=== PATIENT | male | born 1935 | race Caucasian/White ===

== ENCOUNTER 2017-05-11 15:58 | Inpatient (IN) | payer MEDICARE, OTHER ==
[~2017-05-11] VITALS: Ht 172.7 cm; Wt 63.1 kg
--- NOTE | ~2017-05-11 | PUL ---
PATIENT'S NAME: NICOLE WIN [facility] AGE: 82 Y [address] ROOM: [address] [address] LOCATION: GPCU ADMIT DATE: 05/11/2017 Pulmonary DISCHARGE DATE: 05/25/2017 FAMILY PHYSICIAN: Physician, Unknown ATTENDING PHYSICIAN: Daphnie Arias NAME OF PROCEDURE: Overnight Pulse Oximetry DATE OF PROCEDURE: May 17 to May 18, 2017 REASON FOR EXAM: Nocturnal hypoxemia RESULTS: The test was performed on room air. The recording time was 9 hours, 35 minutes, and 56 seconds, with a total valid sampling time of 9 hours, 24 minutes, and 4 seconds. The highest pulse was 109, lowest pulse was 81, with a mean pulse of 91. The highest SpO2 was 98%, lowest SpO2 was 56%, with a mean SpO2 of 90.5%. The patient spent 1 hour, 24 minutes, and 28 seconds with SpO2 less than 89%, representing 15% of the total sleep time. The desaturation event index was elevated at 16.9. PHYSICIAN INTERPRETATION: The patient has evidence was of significant nocturnal hypoxia and would qualify for supplemental oxygen as per Medicare criteria. However because of his significant on nocturnal hypoxia with an elevated desaturation event index a sleep study is suggested at this time. MD TONY OH/bubba /[id number] dtt: 05/28/17 0922 , LAURA HERNANDEZ dtd: 05/27/17 2151
--- NOTE | ~2017-05-11 | DS ---
PATIENT'S NAME: NICOLE WIN [facility] AGE: 82 Y [address] ROOM: [place] [address] LOCATION: GPCU ADMIT DATE: 05/11/2017 Discharge Summary DISCHARGE DATE: 05/25/2017 FAMILY PHYSICIAN: Physician, Unknown ATTENDING PHYSICIAN: Daphnie Arias PRIMARY DIAGNOSES: 1. 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 2. End-stage renal disease, on hemodialysis. 3. Acute encephalopathy. 4. Diabetes mellitus type 2. 5. Essential hypertension. 6. Severe peripheral arterial disease. 7. Cerebrovascular disease. 8. Overactive bladder. 9. Eiepmp-rc-cvollia kidney disease. OPERATIONS/PROCEDURES: Left 3rd and 4th toe amputation was carried out 05/14/[address] Sauer. HISTORY OF PRESENTING ILLNESS/REASON FOR ADMISSION: Please refer to the H and P dictated 05/11/2017. HOSPITAL COURSE: The patient was admitted to the hospital as noted above with a presumptive diagnosis of left 3rd and 4th toe gangrene. He was seen and evaluated in an outside facility and recommended for hospitalization. Because hemodialysis was not available there, he was transferred here for definitive evaluation and management. He was mildly encephalopathic demonstrating lethargy upon his admission. He was seen and evaluated by Vascular Surgery. Nephrology also assisted in management and performed hemodialysis over the course of his hospital stay here. Ultimately, he was recommended to undergo a left 3rd and 4th toe amputation and this was performed by Dr. Sauer without any complications. His hospital course was indolent. His blood sugars were managed with sliding scale insulin and proved to be labile. His insulin regimen was adjusted. Blood pressure is also proved to be labile. He was continued on ARB therapy with losartan, but did require some intermittent treatment for uncontrolled blood pressures. He also received a variety of supportive cares and some restorative care including physical therapy, occupational therapy. Care management assisted in looking for placement for him. It was felt that he would not be safe to return home and did not have an appropriate support PATIENT'S NAME: NICOLE WIN [facility] AGE: 82 Y [address] ROOM: [place] [address] LOCATION: GPCU ADMIT DATE: 05/11/2017 Discharge Summary DISCHARGE DATE: 05/25/2017 FAMILY PHYSICIAN: Physician, Unknown ATTENDING PHYSICIAN: Daphnie Arias system in place. We did look for group home care, but this was complicated by the patient's spectrum of medical problems including hemodialysis. Ultimately, arrangements were made for him to be transferred to [facility] in [place]. By the end of the day on 05/25/2017, it was felt he would be stable enough for discharge to [facility] with plans for close clinical follow up with his primary care provider as well as outpatient followup with the Dialysis Unit. He will resume his usual Sunday, Sunday, and schedule. DISCHARGE INSTRUCTIONS: 1. Diet: Renal prudent as tolerated. 2. Activities: As tolerated. MEDICATIONS: 1. Amlodipine 5 mg p.o. daily. 2. Levemir insulin 8 units subcutaneous q.a.m. and 10 units subcu q.p.m. 3. Insulin NovoLog per sliding scale. 4. Colace 100 mg p.o. b.i.d. 5. Protonix 40 mg p.o. q.h.s. 6. Losartan 25 mg p.o. daily. 7. Plavix 75 mg p.o. daily. 8. Aspirin 81 mg p.o. q.h.s. 9. Vitamin B complex with C and E daily. 10. Acetaminophen 650 mg p.o. or CO q.6 h. p.r.n. pain or fever. 11. Glucose tab 16 g p.o. daily p.r.n. hypoglycemia. 12. Glucagon 1 mg subcu daily p.r.n. hypoglycemia. FOLLOW UP: He will follow up with his primary care provider in 5 to 7 days. He will follow up at the Dialysis Unit tomorrow Sunday to resume his usual dialysis schedule. He will follow up with Dr. Sauer in 2 weeks. CONDITION ON DISCHARGE: Fair. Total time spent on discharge process was 60 minutes. MD RASHARD LEWIS/modl /[id number] d: 05/26/17 0546 t: 05/26/1733, DISCHARGE SUMMARY
--- NOTE | ~2017-05-11 | HP ---
PATIENT'S NAME: NICOLE WIN [facility] AGE: 82 Y [address] ROOM: [address] [place] [address] LOCATION: GPCU ADMIT DATE: 05/11/2017 History & Physical DISCHARGE DATE: FAMILY PHYSICIAN: PHYSICIAN, UNKNOWN ATTENDING PHYSICIAN: JUDY AGUIAR DATE OF SERVICE: 05/11/2017 CHIEF COMPLAINT: Gangrene in a diabetic patient with severe peripheral vascular disease. HISTORY OF PRESENT ILLNESS: Mr. Win was transported to our facility from the care of Dr. White, artificial cherry maker at [facility] in [place], [place] this afternoon. The history is gleaned from my interview with his son Nicole Win Jr. Mr. Win has been cared for by his son Santiago nearly continually and he has been progressively weakening over the past week especially. On 05/03/2017, he was admitted to [facility] for infection in the left foot. He was given IV antibiotics, but they did not have dialysis capacity at that facility, and he was discharged on Augmentin 875 mg p.o. b.i.d. and discharged last Sunday. He went to Sunday dialysis there. He was seen earlier this week and noted to have the worsening of infection with erythema and heat on the foot by Dr. Le, he was sent to Dr. White, who completed intervention angiography of the lower extremity to revascularize the left foot today. He tolerated the procedure well. He was given a dose of Zosyn and vancomycin there and blood cultures were obtained. He was started on aspirin and Plavix The patient is fairly sleepy when he arrives here, does not participate in questioning much at all except to agree to the DNR order and to give me some basic yes and no answers. PAST MEDICAL HISTORY: 1. Diabetes mellitus for the past 25 years. 2. Peripheral vascular disease, very severe. 3. End-stage renal disease, dialysis dependent for the past 2 years, he is a patient of Dr. Corona. 4. Cerebrovascular disease, status post cerebral infarction. 5. Snoring, but no diagnosis of obstructive sleep apnea. PAST SURGICAL HISTORY: 1. Fistula in his right arm. 2. Resection of renal stones. 3. Left knee procedure for small tumor in the very distant past. PATIENT'S NAME: NICOLE WIN [facility] AGE: 82 Y [address] ROOM: [address] [address] [facility] ADMIT DATE: 05/11/2017 History & Physical DISCHARGE DATE: FAMILY PHYSICIAN: PHYSICIAN, UNKNOWN ATTENDING PHYSICIAN: JUDY AGUIAR 4. Angiogram and revascularization with 2 stents to the left external iliac and other vessels in the left leg. ALLERGIES: NO KNOWN DRUG ALLERGIES. MEDICATIONS: 1. Amlodipine 5 mg p.o. daily, amlodipine was discontinued today. 2. Amoxicillin 500 b.i.d. 3. B complex vitamin daily. 4. Plavix 75 a day. 5. Colestid 1 g b.i.d. 6. Insulin Humulin 70/30 subcu 25 units q.a.m. and 25 units every bedtime. 7. Losartan 25 mg p.o. daily. 8. Myrbetriq 50 mg daily. 9. He was discharged on aspirin 81 mg p.o. daily per the drilling assistant. SOCIAL HISTORY: He has been for the past 2 years. He has 3 children. Mainly his son Santiago is local and cares for him. He is with him most of the time and 24 hours a day for the past week. 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 He smoked for most of his life and continues to smoke a pack a day and he has a rare alcoholic beverage. No other illicit drug use is reported. FAMILY HISTORY: His mother at age 64 of breast cancer. His father at 84 of a brain tumor. He also had diabetes. The patient needs to use a walker since December, but he has been using a wheelchair intermittently for the past 2 weeks, but constantly this past week. REVIEW OF SYSTEMS: Again, most of this history is taken from the son's history and the patient does not offer much; although, I am sitting right next to him and asking these questions, he slept most of the time. GENERAL: He has had 40 pounds weight loss over the past 3 years. His appetite is diminished at times. He has had increasing fatigue. HEENT: He has cataract, glaucoma, and wears glasses. He has had dizziness. He does have thin liquid and pill dysphagia. PULMONARY: He has had shortness of breath, but no orthopnea, current cough, wheezing, he has not had a heart attack in the past, he does get ankle edema sometimes. GASTROINTESTINAL: Positive for stomach distention with nausea, reflux, no vomiting, incontinence of loose and watery stool, especially recently, no constipation. Last BM was today. No significant cramping with his bloating. No hematemesis, hematochezia, or melena. PATIENT'S NAME: NICOLE WIN [facility] AGE: 82 Y [address] ROOM: [id number] [place] [address] LOCATION: GPCU ADMIT DATE: 05/11/2017 History & Physical DISCHARGE DATE: FAMILY PHYSICIAN: PHYSICIAN, UNKNOWN ATTENDING PHYSICIAN: JUDY AGUIAR GENITOURINARY: He was being treated for hyperactive bladder, but he has had consistently less and less output since he has been on dialysis. NEUROLOGIC: He has bilateral weakness. He has diabetic neuropathy. His confusion started 3 months ago and got worse this week. He has had no dysarthria, syncope, or recent falls. He has balance problems related to diabetes and short-term memory is progressively worse. He has chronic kidney disease with chronic anemia. MUSCULOSKELETAL: He has left knee pain. No known osteoporosis. ENDOCRINE: He has diabetes with sweats, which have improved since it has been better controlled since his son has been helping him control his diet and has hired someone to give him his medicines at noontime. SKIN: He is red over the dorsum of the left foot with a mild cellulitis there. He has some verrucous lesions on the lower extremities as well. PSYCHIATRIC: Negative for depression, schizophrenia, manic, depressive, or insomnia. PHYSICAL EXAMINATION: GENERAL: This is a well-developed, relatively well-nourished male who is pale, he is bearded, he is unkempt listless gentleman. HEENT: Normocephalic, atraumatic. His pupils are equal, round. Sclerae are anicteric, slightly injected, left worse than right. Palpebral conjunctiva are pale and pink without exudate. Oropharynx reveals dentition in not too bad repair, but really the hygiene is poor. Mucous membranes are relatively moist. Soft palate, lifts symmetrically. NECK: Supple without lymphadenopathy. LUNGS: Reveal crackles in both bases. There is no CVA or vertebral tenderness. CARDIOVASCULAR: Regular rate and rhythm without murmur, rub, or gallop. ABDOMEN: Mildly obese. Soft. Slightly distended and full. No specific mass with normoactive bowel sounds. EXTREMITIES: There is no pretibial edema. The left foot is slightly edematous with mild erythema on the dorsum, but both feet are extremely poorly cared for and he has some dark material matted around the toes of both feet. There is gangrene of the 3rd and 4th toes in the left foot and no pulses are palpable on the right or left foot by me so dopplerable pulses on the left. Strength is not tested in the lower extremities. He is able to grasp about 4/5 in both hands slightly better on the right than the left. LABORATORY DATA: This is from today from [facility], white blood cell count is 15.8, hemoglobin 12.2, hematocrit 37.7, platelets 370,000, neutrophils absolute 10.5, percent neutrophils is 67, percent lymphs 24, monos 7, eos 3. INR is 1. Sodium 136, potassium 4.1, chloride 89, CO2 29, glucose 220, BUN 23, creatinine 3.0, calcium 9.0, and eGFR 19. PATIENT'S NAME: NICOLE WIN [facility] AGE: 82 Y [address] ROOM: [place] [address] LOCATION: GPCU ADMIT DATE: 05/11/2017 History & Physical DISCHARGE DATE: FAMILY PHYSICIAN: PHYSICIAN, UNKNOWN ATTENDING PHYSICIAN: JUDY AGUIAR ASSESSMENT AND PLAN: 1. Gangrene of the left foot. We are going to continue to treat this with Zosyn, hold further Vanco until after dialysis tomorrow, and start clindamycin, assess him for sepsis criteria. I have initiated the sepsis protocol. He did have a short-dip into 81% saturation when he 1st got here on room air and he is well-saturated above 95 on 2 L by nasal cannula. 2. Severe peripheral vascular disease. He has been seen by Dr. Sauer who believes he will need an [id number] amputation on the right and possibly rbopa-elk-fctq amputation on the left, we will be reassessing that in a couple of days. 3. Diabetes mellitus. We will start him on diabetic diet. Continue his home insulin dosing and sliding scale with NovoLog. We will reassess that in next 24 hours. 4. Hypertension. This is from peripheral vascular disease, the amlodipine has been stopped, and we will monitor his blood pressure and continue his losartan. 5. Chronic kidney disease with end-stage renal disease with dialysis dependence. I have spoken to Dr. Garcia and he will go to dialysis in the morning. 6. Disposition. Hope to be able to care for his wounds, decide on his amputations, and then he likely will need rehab following that. JUDY AGUIAR MD LM/chris /[id number] D: [id number] T: 719 HISTORY & PHYSICAL
--- NOTE | ~2017-05-11 | OR ---
PATIENT'S NAME: NICOLE WIN [facility] AGE: 82 Y [address] ROOM: [place] [address] [facility] AD[facility] DATE: 05/11/2017 OR/Procedure Report DISCHARGE DATE: FAMILY PHYSICIAN: PHYSICIAN, UNKNOWN ATTENDING PHYSICIAN: JUDY AGUIAR SURGEON: Stephen Sauer MD RIVET FLUNKY: DATE OF PROCEDURE: 05/14/2017 PREOPERATIVE DIAGNOSIS: Gangrenous left third and fourth toes. POSTOPERATIVE DIAGNOSIS: Gangrenous left third and fourth toes. PROCEDURE PERFORMED: Left third and fourth toe amputation. WELFARE ADVISER: JAKE Kaplan. ANESTHESIA: General. ESTIMATED BLOOD LOSS: 5 mL. OPERATIVE FINDINGS: Minimal bleeding after resection of toes. No evidence of infection in the foot. DESCRIPTION OF PROCEDURE: The patient was brought to the operating room, placed supine on the operating table, placed under general anesthesia. Prepped and draped in a sterile manner. Preoperative time-out was performed. We made a circular incision at the base of the third and fourth toes, transected the bones with a bone cutter. We then used a rongeur to nibble back the heads of the metatarsals until we had healthy surrounding bone. There was some only mild bleeding, there was no brisk bleeding. The foot is at high risk of not being able to heal. We copiously irrigated the wound. We then reapproximated the deep layers with Vicryl, skin was closed with interrupted nylon. The patient tolerated the procedure well, was transferred to the recovery room, and back to the floor. STEPHEN SAUER MD FKM/modl /[id number] d: 05/14/17 1058 t: 05/16/17 1318, OPERATIVE SUMMARY
--- NOTE | ~2017-05-11 | CON ---
PATIENT'S NAME: NICOLE WIN [facility] AGE: 82 Y [address] ROOM: [place] [address] LOCATION: GPCU ADMIT DATE: 05/11/2017 Consultation DISCHARGE DATE: FAMILY PHYSICIAN: PHYSICIAN, UNKNOWN ATTENDING PHYSICIAN: JUDY AGUIAR REFERRING PHYSICIAN: VINNY HUTCHINSON MD This is a consult for Dr. Sanchez. HISTORY OF PRESENT ILLNESS: This pleasant 82-year-old gentleman is referred for rehab evaluation, admitted on 05/11/2017 with progressive weakness with infection of the left foot toes. He is status post 3rd and 4th toe amputation on 05/14/2017, details on record. PAST MEDICAL HISTORY: 1. He is known to be with diabetes, not so well controlled, insulin- dependent. 2. Hypertension. 3. End-stage renal disease. 4. Status post CVA. 5. Possible sleep apnea. PAST SURGICAL HISTORY: 1. He is status post fistula in the right arm for dialysis. 2. Status post renal stone removal. 3. Status post stenting to vessels, left external iliac artery and another artery on the left side, leg. SOCIAL HISTORY: He is also a heavy smoker on a regular basis. PHYSICAL EXAMINATION: GENERAL: He is alert, oriented, feels well. VITAL SIGNS: Blood pressure 179/77, temperature 98.0, pulse 87, respirations 18. He is 5 feet 8 inches tall and weighs 62.0 kg. MUSCULOSKELETAL: He can move all 4, but he is markedly weak in the right dorsiflexors and right lower extremity especially, at high risk of falling. He has muscle strength otherwise in the left lower extremity, bilateral upper extremities at about 4-/5, on the right lower extremity dorsiflexor at best is 2- to 1 over 5. MEDICATIONS: He is at the present time on the following medications: 1. Levemir insulin. 2. Insulin NovoLog, mild scale. 3. Dextrose. PATIENT'S NAME: NICOLE WIN [facility] AGE: 82 Y [address] ROOM: [place] [address] LOCATION: GPCU ADMIT DATE: 05/11/2017 Consultation DISCHARGE DATE: FAMILY PHYSICIAN: PHYSICIAN, UNKNOWN ATTENDING PHYSICIAN: JUDY AGUIAR 4. Heparin sodium. 5. Zofran. 6. Colace. 7. Metamora. 8. Morphine sulfate. 9. Protonix. 10. Florastor. 11. Dilaudid. 12. Epogen. 13. Venofer. 14. Albumin 25%. 15. Cozaar. 16. Plavix. 17. Haldol. 18. Colestid. 19. Aspirin. 20. B complex. 21. Tylenol. 22. Glucagon. 23. Glucose. 24. NaCl 0.9%. 25. Insulin 70/30. 26. Vancomycin. 27. Zosyn. ASSESSMENT AND PLAN: We will continue to watch him for PT and OT. I will prescribe for him an ankle-foot orthosis for the right leg to prevent him from falling. He is practically at high risk of falling because of dorsiflexors marked weakness. At the present time, I feel that he needs to be probably addressed regarding cessation of smoking. I will take him if I have an opening. At the present time, we have a full unit. I will try to if we have an opening to take him to rehab. However, if he is discharged before I take him, I would like to see him in 2 weeks in my office. Please see the orders. I would like him not to drive until he is evaluated. All the above was explained to him and his son, they verbalized understanding and in agreement. JUAN JOSÉ DURON MD PATIENT'S NAME: NICOLE WIN [facility] AGE: 82 Y [address] ROOM: [place] [address] LOCATION: GPCU ADMIT DATE: 05/11/2017 Consultation DISCHARGE DATE: FAMILY PHYSICIAN: PHYSICIAN, UNKNOWN ATTENDING PHYSICIAN: JUDY AGUIAR /[id number] d: 05/17/172024 t: 05/18/17 0759, CONSULTATION REPORT
--- NOTE | ~2017-05-11 | CON ---
PATIENT'S NAME: NICOLE WIN [facility] AGE: 82 Y [address] ROOM: [address] [place], [place] [address] LOCATION: GPCU ADMIT DATE: 05/11/2017 Consultation DISCHARGE DATE: FAMILY PHYSICIAN: PHYSICIAN, UNKNOWN ATTENDING PHYSICIAN: JUDY AGUAIR DATE OF CONSULTATION: 05/12/2017 REFERRING PHYSICIAN: VINNY SAUER MD This is a [facility] Nephrology Consultation. REASON FOR CONSULTATION: End-stage renal disease, need for hemodialysis. HISTORY OF PRESENT ILLNESS: This is an 82-year-old male patient with a history of end-stage renal disease, who is a regular hemodialysis patient of Dr. Corona that presented with a left foot infection and is now being followed by Dr. Sauer. At this time of exam, Dr. Sauer has recommended the patient undergo a left BKA and right AKA due to gangrenous diabetic foot ulcer of the left foot as well as severe peripheral vascular disease. Due to the patient's history of end-stage renal disease, on regular hemodialysis on Sunday, , and Sunday, Nephrology has been asked to consult on the patient and manage his hemodialysis while he is hospitalized. At the time of exam, there is no current hemodialysis record available or family at this time. The patient is currently very confused and has been with a one-to-one sitter overnight for restlessness and agitation. PAST MEDICAL HISTORY: As listed above includin. End-stage renal disease, on hemodialysis on Sunday, , and Sunday. 2. Insulin-dependent diabetes. 3. Peripheral vascular disease. 4. Hypertension. 5. High-risk medications in the form of Plavix. PAST SURGICAL HISTORY: As listed above includin. Aortogram with peripheral runoff. 2. AV fistula placement in the right upper extremity. 3. Resection of renal stones. 4. Left knee with small tumor removal. 5. Angiogram with revascularization with two stents to the left external iliac as well as other vessels in the left leg. ALLERGIES: NONE TO MEDICATION.PATIENT'S NAME: NICOLE WIN [facility] AGE: 82 Y [address] ROOM: [address] [place], [place] [address] LOCATION: GPCU ADMIT DATE: 05/11/2017 Consultation DISCHARGE DATE: FAMILY PHYSICIAN: PHYSICIAN, UNKNOWN ATTENDING PHYSICIAN: JUDY AGUIAR CURRENT HOME MEDICATIONS: Include. 1. Amlodipine 5 mg daily. 2. Amoxicillin 500 mg twice a day. 3. Vitamin B complex daily. 4. Plavix 75 mg daily. 5. Colestid 1 g b.i.d. 6. Insulin Humulin 70/30 subcu 25 units every morning and 25 units every bedtime. 7. Losartan 25 mg daily. 8. Myrbetriq 50 mg daily. 9. Aspirin 81 mg daily. SOCIAL HISTORY: The patient does live at home with his son. He has been for the past two years. His son does take care of him on a daily basis. 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 He does have a past history of smoking and does continue to smoke a pack a day. Denies any illicit drug use or alcohol use per record. FAMILY HISTORY: Reviewed and is noncontributory. There is no history of renal disease or dialysis. REVIEW OF SYSTEM: Essentially unable to obtain the patient's full review of systems due to his cognitive status. Further record is significant for a 40-pound weight loss over the past three years. PHYSICAL EXAMINATION: VITAL SIGNS: Blood pressure is 125/78, heart rate is 90, respirations 20, temp 97.6, sats are 96% on 2 L. GENERAL: On exam, this is a confused elderly male, who appears older than his stated age. He is in a moderate amount of distress due to restlessness and agitation. HEENT: His head is normocephalic and atraumatic. Eyes, pupils are equal, round, and reactive to light and accommodation. EOMs intact. Nose midline. Mouth, no gingival bleeding. Dentition is in poor repair. NECK: Soft and supple. LUNGS: Diminished in the bases bilaterally. The patient is on 2 L nasal cannula. CARDIOVASCULAR: Regular rate and rhythm with no appreciable murmurs, rubs, or thrills. ABDOMEN: Soft, nontender, and nondistended. Bowel sounds positive. EXTREMITIES: Show no signs of peripheral edema. There is a dressing noted to the left foot that is clean dry and intact. LABORATORY DATA: WBC is 15.8, hemoglobin 12.2, hematocrit 37.7 and platelets are 370,000. Sodium 136, potassium 4.1, chloride 89, CO2 is 29, glucose 220, BUN 23, creatinine 3.0, calcium 9.0 and GFR is 19.PATIENT'S NAME: NICOLE WIN [facility] AGE: 82 Y [address] ROOM: [address] [place], [place] [address] LOCATION: GPCU ADMIT DATE: 05/11/2017 Consultation DISCHARGE DATE: FAMILY PHYSICIAN: PHYSICIAN, UNKNOWN ATTENDING PHYSICIAN: JUDY AGUIAR ASSESSMENT AND PLAN: 1. End-stage renal disease, on hemodialysis therapy. We will attempt to obtain the patient's outpatient clinical record from [facility]. He does undergo hemodialysis Sunday, , and Sunday. We will initiate hemodialysis as per his primary routine. Further recommendations will be forthcoming. 2. Gangrene of the left foot. The patient is on clindamycin, Zosyn and vanc. We will continue these medications following per Dr. Sauer and primary team's recommendations. 3. Diabetes mellitus. Sliding scale insulin. 4. Hypertension. Blood pressures are controlled at this time. Continue to monitor. This patient has been seen and assessed by Dr. Stewart. His care is being conducted in consultation with Dr. Stewart as well as me. We will plan further recommendations as they are forthcoming. WENDY TERRY DNP, TECHNICAL SERVICES ANALYST FOR ANGELIKA STEWART MD ENS/modl /[id number] d: 05/13/17 1340 t: 06/06/17 1346, CONSULTATION REPORT
[2017-05-11] MEDS ORDERED: NORVASC5 MG PO (17:00)
[2017-05-11] MEDS ORDERED: CLOPIDOGREL75 MG PO (17:04)
[2017-05-11] MEDS ORDERED: COZAAR25 MG PO (17:05)
[2017-05-11] MEDS ORDERED: MYRBETRIQ50 MG PO (17:06)
[2017-05-11] MEDS ORDERED: COLESTID1 GM PO (17:07)
[2017-05-11] MEDS ORDERED: TRIPHROCAPS SOFT1 MG PO (17:30)
[2017-05-11] MEDS ORDERED: AMOX TR-K CLV1 EAC3 PO (17:32)
[2017-05-11] MEDS ORDERED: HUMULIN 70100 UNIT/M SUB-Q (17:40)
[2017-05-11] MEDS ORDERED: HUMULIN 70100 UNIT/M (17:40)
[2017-05-11] MEDS ORDERED: LEVEMIR FL100 UNIT/1 SUB-Q (17:41)
[2017-05-11 18:50] LABS: BICARBONATE 30.4 mmol/L (18.0-23.0); LACTATE 1.1 mEq/L (0.50-1.60); PCO2 48 mmHg (35-45); PO2 60 mmHg (80-90)
[2017-05-11 19:18] LABS: BASOPHIL # 0.1 K/uL (0.0-0.2); BASOPHIL % 0.4 %; EOSINOPHIL # 0.4 K/uL (0.0-0.5); EOSINOPHIL % 3.1 %; HEMATOCRIT 32.4 % (33.0-50.0); HEMOGLOBIN 10.4 g/dL (11.0-16.0); IMMATURE GRANULOCYTE # 0.1 K/uL (0.0-0.3); IMMATURE GRANULOCYTE % 0.6 %; LYMPHOCYTE # 1.3 K/uL (0.8-4.0); LYMPHOCYTE % 10.8 %; MCH 31.4 pg (27.0-34.0); MCHC 32.1 gm/dL (32.0-36.5); MCV 97.9 fl (83.0-98.0); MONOCYTE # 0.6 K/uL (0.0-1.0); MONOCYTE % 5.2 %; NEUTROPHIL # (ANC) 9.8 K/uL (1.4-9.0); NEUTROPHIL % 79.9 %; NRBC % 0 /100WBC (0-0.00); PLATELET COUNT 332 K/uL (150-450); RBC 3.31 M/uL (3.50-5.50); RDW-CV 16.7 % (11.9-14.6); WBC 12.2 K/uL (4.0-11.0)
[2017-05-11 19:36] LABS: ALBUMIN 2.6 gm/dL (3.5-5.0); ANION GAP 16.8 (10.0-19.0); CREATININE 3.5 mg/dL (0.6-1.3); POTASSIUM 4.8 mMol/L (3.7-5.1); TOTAL BILIRUBIN 0.3 mg/dL (0.0-1.5); TOTAL PROTEIN 6.6 g/dL (6.0-8.4)
[2017-05-11 19:39] LABS: CALCIUM 7.4 mg/dL (8.5-10.5)
[2017-05-12 03:46] LABS: BASOPHIL # 0.1 K/uL (0.0-0.2); BASOPHIL % 0.4 %; EOSINOPHIL # 0.4 K/uL (0.0-0.5); EOSINOPHIL % 2.8 %; HEMATOCRIT 26.8 % (33.0-50.0); HEMOGLOBIN 8.7 g/dL (11.0-16.0); IMMATURE GRANULOCYTE # 0.1 K/uL (0.0-0.3); IMMATURE GRANULOCYTE % 0.9 %; LYMPHOCYTE # 1.9 K/uL (0.8-4.0); LYMPHOCYTE % 15.2 %; MCH 31.9 pg (27.0-34.0); MCHC 32.5 gm/dL (32.0-36.5); MCV 98.2 fl (83.0-98.0); MONOCYTE # 1.1 K/uL (0.0-1.0); MONOCYTE % 9.3 %; MPV 8.8 fl (9.4-12.4); NEUTROPHIL # (ANC) 8.8 K/uL (1.4-9.0); NEUTROPHIL % 71.4 %; NRBC % 0 /100WBC (0-0.00); PLATELET COUNT 280 K/uL (150-450); RBC 2.73 M/uL (3.50-5.50); RDW-CV 16.6 % (11.9-14.6); WBC 12.3 K/uL (4.0-11.0)
[2017-05-12 04:03] LABS: ALBUMIN 2.1 gm/dL (3.5-5.0); PHOSPHORUS 6.9 mg/dL (2.5-4.9)
[2017-05-12 04:17] LABS: CALCIUM 7.3 mg/dL (8.5-10.5)
[2017-05-13 03:27] LABS: BASOPHIL % 0.1 %; EOSINOPHIL # 0.2 K/uL (0.0-0.5); HEMATOCRIT 26.1 % (33.0-50.0); HEMOGLOBIN 8.6 g/dL (11.0-16.0); IMMATURE GRANULOCYTE # 0.1 K/uL (0.0-0.3); IMMATURE GRANULOCYTE % 0.6 %; LYMPHOCYTE % 8.6 %; MCH 32.1 pg (27.0-34.0); MCV 97.4 fl (83.0-98.0); MONOCYTE % 4.4 %; MPV 8.9 fl (9.4-12.4); NEUTROPHIL # (ANC) 20.2 K/uL (1.4-9.0); NEUTROPHIL % 85.3 %; NRBC % 0.1 /100WBC (0-0.00); PLATELET COUNT 300 K/uL (150-450); RBC 2.68 M/uL (3.50-5.50); RDW-CV 16.5 % (11.9-14.6)
[2017-05-13 03:28] LABS: WBC 23.7 K/uL (4.0-11.0)
[2017-05-13 03:42] LABS: ALBUMIN 2.1 gm/dL (3.5-5.0); ANION GAP 17.3 (10.0-19.0); CREATININE 2.8 mg/dL (0.6-1.3); PHOSPHORUS 7.1 mg/dL (2.5-4.9); POTASSIUM 4.3 mMol/L (3.7-5.1)
[2017-05-13 03:44] LABS: CALCIUM 7.2 mg/dL (8.5-10.5)
[2017-05-14 06:12] LABS: ALBUMIN 1.8 gm/dL (3.5-5.0); ANION GAP 16.4 (10.0-19.0); CALCIUM 7.2 mg/dL (8.5-10.5); CREATININE 4.2 mg/dL (0.6-1.3); PHOSPHORUS 8.1 mg/dL (2.5-4.9); POTASSIUM 4.4 mMol/L (3.7-5.1)
[2017-05-15 01:27] LABS: CREATININE 2.3 mg/dL (0.6-1.3)
[2017-05-15 01:33] LABS: ANION GAP 11.1 (10.0-19.0); POTASSIUM 3.1 mMol/L (3.7-5.1)
[2017-05-16 05:07] LABS: BASOPHIL % 0.3 %; EOSINOPHIL # 0.5 K/uL (0.0-0.5); EOSINOPHIL % 3.8 %; HEMATOCRIT 25.3 % (33.0-50.0); HEMOGLOBIN 8.3 g/dL (11.0-16.0); IMMATURE GRANULOCYTE # 0.2 K/uL (0.0-0.3); IMMATURE GRANULOCYTE % 1.7 %; LYMPHOCYTE # 2.4 K/uL (0.8-4.0); LYMPHOCYTE % 19.2 %; MCH 31.6 pg (27.0-34.0); MCHC 32.8 gm/dL (32.0-36.5); MCV 96.2 fl (83.0-98.0); MONOCYTE # 0.7 K/uL (0.0-1.0); MONOCYTE % 5.6 %; NEUTROPHIL # (ANC) 8.5 K/uL (1.4-9.0); NEUTROPHIL % 69.4 %; NRBC % 0 /100WBC (0-0.00); PLATELET COUNT 252 K/uL (150-450); RBC 2.63 M/uL (3.50-5.50); RDW-CV 16.8 % (11.9-14.6); WBC 12.3 K/uL (4.0-11.0)
[2017-05-16 08:43] LABS: ALBUMIN 2.3 gm/dL (3.5-5.0); TOTAL PROTEIN 6.4 g/dL (6.0-8.4)
[2017-05-16 08:48] LABS: ANION GAP 17.1 (10.0-19.0); CALCIUM 7.2 mg/dL (8.5-10.5); CREATININE 4.2 mg/dL (0.6-1.3); POTASSIUM 4.1 mMol/L (3.7-5.1); TOTAL BILIRUBIN 0.4 mg/dL (0.0-1.5)
[2017-05-17 07:35] LABS: BASOPHIL % 0.3 %; EOSINOPHIL # 0.5 K/uL (0.0-0.5); HEMATOCRIT 29.6 % (33.0-50.0); HEMOGLOBIN 9.7 g/dL (11.0-16.0); IMMATURE GRANULOCYTE # 0.2 K/uL (0.0-0.3); IMMATURE GRANULOCYTE % 1.7 %; LYMPHOCYTE # 2.8 K/uL (0.8-4.0); LYMPHOCYTE % 22.1 %; MCH 31.9 pg (27.0-34.0); MCHC 32.8 gm/dL (32.0-36.5); MCV 97.4 fl (83.0-98.0); MONOCYTE % 7.7 %; MPV 8.9 fl (9.4-12.4); NEUTROPHIL # (ANC) 8.2 K/uL (1.4-9.0); NEUTROPHIL % 64.2 %; NRBC % 0 /100WBC (0-0.00); PLATELET COUNT 278 K/uL (150-450); RBC 3.04 M/uL (3.50-5.50); RDW-CV 17.4 % (11.9-14.6); WBC 12.8 K/uL (4.0-11.0)
[2017-05-20 04:52] LABS: BASOPHIL % 0.3 %; EOSINOPHIL # 0.5 K/uL (0.0-0.5); EOSINOPHIL % 4.6 %; HEMATOCRIT 24.7 % (33.0-50.0); IMMATURE GRANULOCYTE # 0.5 K/uL (0.0-0.3); IMMATURE GRANULOCYTE % 4.5 %; LYMPHOCYTE # 2.6 K/uL (0.8-4.0); LYMPHOCYTE % 24.6 %; MCHC 31.2 gm/dL (32.0-36.5); MCV 99.6 fl (83.0-98.0); MONOCYTE # 0.9 K/uL (0.0-1.0); MONOCYTE % 8.8 %; MPV 9.5 fl (9.4-12.4); NEUTROPHIL % 57.2 %; NRBC % 0 /100WBC (0-0.00); PLATELET COUNT 319 K/uL (150-450); RBC 2.48 M/uL (3.50-5.50); RDW-CV 18.1 % (11.9-14.6); WBC 10.5 K/uL (4.0-11.0)
[2017-05-20 05:06] LABS: HEMOGLOBIN 7.7 g/dL (11.0-16.0)
[2017-05-20 05:14] LABS: ALBUMIN 2.1 gm/dL (3.5-5.0); CALCIUM 7.8 mg/dL (8.5-10.5); CREATININE 3.8 mg/dL (0.6-1.3); TOTAL PROTEIN 6.1 g/dL (6.0-8.4)
[2017-05-20 05:18] LABS: ANION GAP 15.4 (10.0-19.0); POTASSIUM 4.4 mMol/L (3.7-5.1); TOTAL BILIRUBIN 0.3 mg/dL (0.0-1.5)
[2017-05-20 10:40] LABS: HEMATOCRIT 26.3 % (33.0-50.0); HEMOGLOBIN 8.5 g/dL (11.0-16.0)
[2017-05-23 09:09] LABS: ALBUMIN 2.4 gm/dL (3.5-5.0); ANION GAP 16.1 (10.0-19.0); CALCIUM 7.8 mg/dL (8.5-10.5); PHOSPHORUS 6.4 mg/dL (2.5-4.9); POTASSIUM 4.1 mMol/L (3.7-5.1)
[2017-05-23 09:14] LABS: CREATININE 4.4 mg/dL (0.6-1.3)
[2017-05-24 04:19] LABS: ALBUMIN 2.7 gm/dL (3.5-5.0); ANION GAP 14.8 (10.0-19.0); CREATININE 2.6 mg/dL (0.6-1.3); PHOSPHORUS 3.1 mg/dL (2.5-4.9); POTASSIUM 3.8 mMol/L (3.7-5.1)
[2017-05-25 04:25] LABS: BASOPHIL # 0.1 K/uL (0.0-0.2); BASOPHIL % 0.3 %; EOSINOPHIL # 0.6 K/uL (0.0-0.5); EOSINOPHIL % 3.7 %; HEMATOCRIT 25.2 % (33.0-50.0); IMMATURE GRANULOCYTE # 0.1 K/uL (0.0-0.3); IMMATURE GRANULOCYTE % 0.7 %; LYMPHOCYTE # 2.4 K/uL (0.8-4.0); LYMPHOCYTE % 16.4 %; MCH 30.9 pg (27.0-34.0); MCHC 31.7 gm/dL (32.0-36.5); MCV 97.3 fl (83.0-98.0); MONOCYTE % 6.4 %; NEUTROPHIL # (ANC) 10.8 K/uL (1.4-9.0); NEUTROPHIL % 72.5 %; NRBC % 0 /100WBC (0-0.00); RBC 2.59 M/uL (3.50-5.50); RDW-CV 17.3 % (11.9-14.6); WBC 14.9 K/uL (4.0-11.0)
[2017-05-25 04:28] LABS: PLATELET COUNT 502 K/uL (150-450)
[2017-05-25 04:37] LABS: ALBUMIN 2.7 gm/dL (3.5-5.0); ANION GAP 16.2 (10.0-19.0); CALCIUM 8.1 mg/dL (8.5-10.5); CREATININE 3.8 mg/dL (0.6-1.3); PHOSPHORUS 4.7 mg/dL (2.5-4.9); POTASSIUM 4.2 mMol/L (3.7-5.1)
== END 2017-05-25 12:25 | DRG 853 ==
LOC: GPCU 15:58
PROVIDERS: Family Medicine; Hospitalist; Internal Medicine; Nurse Practitioner; ADMIT Internal Medicine
PROC: 5A1D60Z (ICD-10-PCS; 2017-05-12)
PROC: 0Y6U0Z0 Detachment at Left 3rd Toe, Complete, Open Approach (ICD-10-PCS; principal; 2017-05-14)
PROC: 0Y6W0Z0 Detachment at Left 4th Toe, Complete, Open Approach (ICD-10-PCS; principal; 2017-05-14)
DX: A41.9 Sepsis, unspecified organism (principal); N18.6 End stage renal disease; G93.40 Encephalopathy, unspecified; E44.0 Moderate protein-calorie malnutrition; E11.52 Type 2 diabetes mellitus with diabetic peripheral angiopathy with gangrene; I12.0 Hypertensive chronic kidney disease with stage 5 chronic kidney disease or end stage renal disease; K27.9 Peptic ulcer, site unspecified, unspecified as acute or chronic, without hemorrhage or perforation; I95.3 Hypotension of hemodialysis; F17.200 Nicotine dependence, unspecified, uncomplicated; D50.9 Iron deficiency anemia, unspecified; Z79.4 Long term (current) use of insulin; E11.22 Type 2 diabetes mellitus with diabetic chronic kidney disease; Z99.2 Dependence on renal dialysis; E11.40 Type 2 diabetes mellitus with diabetic neuropathy, unspecified; Z68.20 Body mass index [BMI] 20.0-20.9, adult; D63.1 Anemia in chronic kidney disease; Z23 Encounter for immunization; H40.9 Unspecified glaucoma; Z87.442 Personal history of urinary calculi; Z95.828 Presence of other vascular implants and grafts; Z66 Do not resuscitate; K21.9 Gastro-esophageal reflux disease without esophagitis; N32.81 Overactive bladder; Z79.02 Long term (current) use of antithrombotics/antiplatelets; J44.9 Chronic obstructive pulmonary disease, unspecified; E11.649 Type 2 diabetes mellitus with hypoglycemia without coma; E87.6 Hypokalemia; E11.65 Type 2 diabetes mellitus with hyperglycemia; G47.34 Idiopathic sleep related nonobstructive alveolar hypoventilation; Z86.73 Personal history of transient ischemic attack (TIA), and cerebral infarction without residual deficits
CPT/HCPCS: C9113; G0009; J0690; J1170; J1630; J1644; J1650; J1756; J2060; J2270; J2310; J2405; J2543; J3370; J7030; J7050; P9047; Q4081

== ENCOUNTER 2017-06-04 17:00 | Inpatient (IN) | payer MEDICARE, OTHER ==
[~2017-06-04] VITALS: Ht 170.2 cm; Wt 55.0 kg
--- NOTE | ~2017-06-04 | CON ---
PATIENT'S NAME: NICOLE WIN [facility] AGE: 82 Y [address] ROOM: [address] [place], [place] [address] LOCATION: GPCU ADMIT DATE: 06/04/2017 Consultation DISCHARGE DATE: FAMILY PHYSICIAN: Mykel Robert MD ATTENDING PHYSICIAN: Sergey Leiva DATE OF CONSULTATION: 06/05/2017 REFERRING PHYSICIAN: ANTONIETA STEWART This is a [facility] Nephrology consultation. REASON FOR CONSULTATION: End-stage renal disease requiring hemodialysis therapy. HISTORY OF PRESENT ILLNESS: This is an 82-year-old male patient who is well known to Nephrology from previous admission, who presented to the [facility] for followup after recently having gangrenous left third and fourth toe amputations. The patient was briefly hospitalized from 05/11/2017 to 05/25/2017 following vascular evaluation. Today, the patient is recommended that he go under a left above- the-knee amputation. The patient does have a past medical history of end-stage renal disease, and is on hemodialysis on Sunday and and Sunday in [place]. He is a primary nephrology patient of Dr. Corona. Due to the patient's history of end-stage renal disease, Nephrology has been asked to consult on the patient and manage his hemodialysis while he is hospitalized. At the time of exam, the patient is in no acute distress. PAST MEDICAL HISTORY: 1. End-stage renal disease, on hemodialysis on Sunday, , and Sunday. 2. Insulin-dependent diabetes. 3. Peripheral vascular disease, status post third and fourth toes amputation on the left. 4. Hypertension. 5. High-risk medications in the form of Plavix. PAST SURGICAL HISTORY: 1. Aortogram with peripheral runoff. 2. AV fistula placement in the right upper extremity. 3. Resection of renal stones. 4. Left knee with small tumor removal. 5. Angiogram with revascularization of two stents to the left external iliac as well as other vessels in the left leg. 6. Left third and fourth toes amputation. ALLERGIES: NONE TO MEDICATION. CURRENT MEDICATIONS: 1. Amlodipine 5 mg daily. 2. Amoxicillin 500 mg twice a day. 3. Vitamin B complex daily. 4. Plavix 75 mg daily. 5. Colestid 1 g b.i.d. 6. Humulin insulin 70/30 subq, 25 units every morning and 25 units everyday at bedtime. 7. Losartan 25 mg daily. 8. Myrbetriq 50 mg daily. 9. Aspirin 81 mg daily.PATIENT'S NAME: NICOLE WIN [facility] AGE: 82 Y [address] ROOM: [address] [address] LOCATION: GPCU ADMIT DATE: 06/04/2017 Consultation DISCHARGE DATE: FAMILY PHYSICIAN: Mykel Robert MD ATTENDING PHYSICIAN: Sergey Leiva SOCIAL HISTORY: The patient does deny any current smoking, drinking, or illicit drug use. He has had a remote history of smoking a pack a day. However, he has recently not been doing that since his last hospitalization on 05/25/2017. He has been for the past two years. FAMILY HISTORY: Reviewed and is non-contributory. There is no history of renal disease or dialysis. REVIEW OF SYSTEMS: GENERAL: He denies any new fever or chills or night sweats. HEENT: Eyes: No double vision or blurred vision. Nose: No epistaxis or rhinorrhea. Mouth: No gingival bleeding. Throat: No sore throat, hoarseness, or cough. RESPIRATORY: He denies wheezing or hemoptysis. CARDIOVASCULAR: He denies chest pain or palpitations. GASTROINTESTINAL: He denies nausea, vomiting, or diarrhea. GENITOURINARY: He denies any frequency, urgency, or hesitancy. MUSCULOSKELETAL: He denies any new arthralgias or myalgias. He is status post amputations of the third and fourth toes on the left foot. IMMUNOLOGICAL: Positive for recent infections of gangrene in the left foot. HEMATOLOGICAL: No easy bleeding or bruising on Plavix therapy. LABORATORY DATA: WBC was 13.8, hemoglobin was 8.8, hematocrit was 27.1, and platelets were 380. Glucose of 145, BUN of 22, creatinine of 2.9, sodium of 136, potassium of 4.1, chloride of 102, CO2 of 22, calcium of 7.4, and albumin of 2.5. ESR was greater than 120. PHYSICAL EXAMINATION: VITAL SIGNS: Blood pressure was 137/63, pulse was 95, respirations were 20, temperature was 98.3, and saturations were 97% on room air. GENERAL: On exam, this is an elderly male patient, who is awake and alert to person. He is in no acute distress. HEENT: Head: Normocephalic and atraumatic. Eyes: Pupils are equal and react briskly to light and accommodation.. EOMs are intact. Nose: Midline. Mouth: No gingival bleeding. Dentition is in poor repair. Throat: Without lymphadenopathy or carotid bruits. JVD is non-detected. PULMONARY: Lung sounds are diminished in the bases bilaterally. CARDIOVASCULAR: Regular rate and rhythm Unable to appreciate any murmurs, rubs, or thrills. ABDOMEN: Soft, nontender, and nondistended. Bowel sounds are positive. EXTREMITIES: Showed no increased peripheral edema. The left foot is status post third and fourth toes removal, and there was no dressing noted. The right foot does also have a dressing applied that is clean and dry and intact.PATIENT'S NAME: NICOLE WIN [facility] AGE: 82 Y [address] ROOM: [place] [address] [facility] ADMIT DATE: 06/04/2017 Consultation DISCHARGE DATE: FAMILY PHYSICIAN: Mykel Robert MD ATTENDING PHYSICIAN: Sergey Leiva ASSESSMENT AND PLAN: 1. End-stage renal disease, on hemodialysis therapy. We will obtain the patient's outpatient clinical record and provide hemodialysis accordingly. The patient does dialyze as outpatient in [place] at [facility]. We will continue his regular hemodialysis orders at this time. Further recommendations will be forthcoming. 2. Gangrene of the left foot. The patient is scheduled for a left above-knee amputation tomorrow. We will continue his dialysis regimen in the interim. 3. Diabetes mellitus, on sliding-scale insulin. 4. Hypertension. Blood pressures are under good control at this time. We will continue to monitor. This patient has been seen and assessed by Dr. Stewart. His care is being conducted in consultation with Dr. Stewart as well as me. We will plan further recommendations as they are forthcoming. In the interim, the patient is to continue hemodialysis as previously prescribed. WENDY TERRY DNP, HEAD BATCHER FOR MD NATALYA LEON/modl /[id number] d: 06/06/17 2352 t: 07/08/17 1020, CONSULTATION REPORT
--- NOTE | ~2017-06-04 | OR ---
PATIENT'S NAME: NICOLE WIN [facility] AGE: 82 Y [address] ROOM: [place] [address] LOCATION: GPCU ADMIT DATE: 06/04/2017 OR/Procedure Report DISCHARGE DATE: FAMILY PHYSICIAN: PHYSICIAN, UNKNOWN ATTENDING PHYSICIAN: Sergey Leiva SURGEON: Stephen Sauer MD SUPERVISOR GATE SERVICES: DATE OF PROCEDURE: 06/05/2017 PREOPERATIVE DIAGNOSIS: Ischemia, left leg. POSTOPERATIVE DIAGNOSIS: Ischemia, left leg. PROCEDURE: Left above-knee amputation. PRESS HAND: Baldemar Mckenzie, Medical Student. ANESTHESIA: General. ESTIMATED FLUID LOSS: 200 mL. OPERATIVE FINDINGS: Good healthy flaps at the end of the case. DESCRIPTION OF PROCEDURE: The patient was brought to the operating room, placed under general anesthesia, prepped and draped in a sterile manner. Preoperative time-out was performed. The patient received preoperative antibiotics. We made a standard fishmouth incision 3 fingerbreadths above the patella. We used Bovie cautery to transect all soft tissues. We identified all small vascular structures, which were then ligated with silk ties. In the medial aspect, we dissected out the superficial femoral artery and vein. These were both suture ligated separately. We then continued posteriorly to transect the soft tissue using Bovie cautery. We identified the sciatic nerve and transected this as well. We then used a rongeur to remove all excess soft tissue away from the bone. We then used a reticulating saw to transect the bone. We achieved hemostasis using suture ligatures as necessary. We then copiously irrigated the wound. We then reapproximated anterior and posterior layers using 2-0 Vicryl. The skin was then closed with von. The stump was wrapped in Kerlix and Sukhdev. The patient tolerated the procedure well and transferred to the recovery room and back to the Surgical ICU. STEPHEN SAUER MD PATIENT'S NAME: NICOLE WIN [facility] AGE: 82 Y [address] ROOM: [place] [address] LOCATION: GPCU ADMIT DATE: 06/04/2017 OR/Procedure Report DISCHARGE DATE: FAMILY PHYSICIAN: PHYSICIAN, UNKNOWN ATTENDING PHYSICIAN: Sergey Leiva/nubial /[id number] d: 06/05/170 t: 06/11/17 1812, OPERATIVE SUMMARY
--- NOTE | ~2017-06-04 | DS ---
PATIENT'S NAME: NICOLE WIN [facility] AGE: 82 Y [address] ROOM: [place] [address] LOCATION: GPCU ADMIT DATE: 06/04/2017 Discharge Summary DISCHARGE DATE: 06/20/2017 FAMILY PHYSICIAN: Mykel Robert MD ATTENDING PHYSICIAN: Mervin Neal PRIMARY DIAGNOSES: 1. Left diabetic foot with gangrenous change. 2. Status post left above-knee amputation. 3. Right leg ischemia. 4. Peripheral arterial disease. 5. End-stage renal disease, on hemodialysis. 6. Diabetes mellitus type 2. 7. Essential hypertension. 8. Cerebrovascular disease. 9. Vascular dementia. OPERATIONS OR PROCEDURES: A left leg above-knee amputation was performed by Dr. Stephen Sauer on 06/05/2017. CT scan of the brain was obtained on 05/18/2017 demonstrating no acute abnormalities. HISTORY OF PRESENTING ILLNESS AND REASON FOR ADMISSION: Please refer to the original H and P dictated on 06/04/2017. HOSPITAL COURSE: The patient was admitted to the hospital as noted above with a presumptive diagnosis of diabetic foot on the left with gangrenous change. He was noted to have significant peripheral arterial disease and it was felt that this leg was also ischemic. He was seen and evaluated by Dr. Sauer and left leg [id number] amputation was recommended. This was carried out as described above without any residual postoperative complications. Postoperatively, he did have some persistent areas of ulceration in the right leg, associated with right leg ischemia. Some consideration was given to right leg amputation; however, it was felt that he would benefit from continued local wound care. He did receive restorative cares and remained hemodynamically stable over the course of his hospital stay. Although not insightful, the patient was interactive and cooperative with nursing cares. Blood sugars were managed with sliding scale insulin. Blood pressures were generally well controlled. By the end of the second week of his hospital stay, it was felt he would be stable enough for discharge to [facility] for continued local wound care, outpatient followup for hemodialysis, and eventual followup with Vascular Surgery. PATIENT'S NAME: NICOLE WIN [facility] AGE: 82 Y [address] ROOM: [place] [address] LOCATION: GPCU ADMIT DATE: 06/04/2017 Discharge Summary DISCHARGE DATE: 06/20/2017 FAMILY PHYSICIAN: Mykel Robert MD ATTENDING PHYSICIAN: Mervin Neal DISCHARGE INSTRUCTIONS: 1. Diet: Renal prudent as tolerated. 2. Activity: As tolerated. He will have physical therapy and occupational therapy. MEDICATIONS: 1. Aspirin 81 mg p.o. daily. 2. Plavix 75 mg p.o. daily. 3. Insulin aspart 5 mg subcu t.i.d. 4. Insulin NovoLog per sliding scale. 5. Levemir insulin 14 units subcu daily. 6. Glucagon pen 1 mg subcu daily p.r.n. hypoglycemia. 7. Protonix 40 mg p.o. daily. 8. Acetaminophen 650 mg p.o. q.4 hours p.r.n. 9. Humarock 5/325 one tablet p.o. q.4 hours p.r.n. pain, #30, no refills. 10. Dextrose tab 16 g p.o. daily p.r.n. hypoglycemia. 11. Colace 100 mg p.o. b.i.d. p.r.n. 12. Losartan 25 mg p.o. daily. 13. Amlodipine 5 mg p.o. daily. 14. B complex 1 tablet p.o. daily. FOLLOWUP: He will follow up with Dr. Stewart, Nephrology, in 7 to 10 days. He will follow up with Dr. Mykel Robert, his primary care provider in 7 to 10 days. He will follow up with Dr. Sauer, Vascular Surgery, in 1 to 2 weeks. CONDITION ON DISCHARGE: Fair. Total time spent on discharge process 45 minutes. MERVNI NEAL MD AJS/modl /[id number] d: 06/27/17 0244 t: 07/04/17 1717, DISCHARGE SUMMARY
--- NOTE | ~2017-06-04 | CON ---
PATIENT'S NAME: NICOLE WIN [facility] AGE: 82 Y [address] ROOM: [place] [address] LOCATION: GPCU ADMIT DATE: 06/04/2017 Consultation DISCHARGE DATE: FAMILY PHYSICIAN: Mykel Robert MD ATTENDING PHYSICIAN: Sergey Leiva REFERRING PHYSICIAN: ANTONIETA HOGAN Consult for Dr. Leiva. This 82-year-old gentleman is referred for rehab evaluation, was admitted on 06/04, is now status post left above-knee amputation on 06/05, details on record. I had seen this patient on consult back on 05/17/2017. At that time, he had left 3rd and 4th toe amputation, was doing well, apparently was discharged, and now readmitted with gangrenous changes and did undergo amputation above knee on the left side. MEDICAL HISTORY: 1. Diabetes type 2. 2. End-stage renal disease. 3. Hypertension. 4. Peripheral vascular disease. 5. CVA per history with minimal weakness. 6. He is now alert, oriented, slow but proper. VITAL SIGNS: Blood pressure 153/65, temperature 98.2, pulse 88, respirations 16. He is 5 feet 7 inches tall and weighs 53.9 kg. Normocephalic. Cranial nerves 2 through 12 are within normal limits. Can comprehend, express well. Speech is clear and not wet. Can feed self. Neurologically, he is intact. Deep tendon reflex present and equal throughout. He can move bilateral upper and lower extremities without much difficulty. He can move right lower extremity well; however, left lower extremity is with bulky dressing on the above knee stump. He is denying any excessive pain, some discomfort. He is continent of his bowel and bladder. MEDICATIONS: He is on, 1. Epoetin fredi. PATIENT'S NAME: NICOLE WIN [facility] AGE: 82 Y [address] ROOM: [place] [address] LOCATION: GPCU ADMIT DATE: 06/04/2017 Consultation DISCHARGE DATE: FAMILY PHYSICIAN: Mykel Robert MD ATTENDING PHYSICIAN: Sergey Leiva 2. Plavix. 3. Aspirin. 4. Heparin sodium. 5. Protonix. 6. Benadryl. 7. Colace. 8. [place]. 9. Nitroglycerin. 10. NaCl 0.9%. 11. Albumin human. 12. Insulin aspart, moderate scale. 13. Glucose. 14. Glucagon. 15. Dextrose. 16. Apresoline. 17. Zofran. 18. Tylenol. ASSESSMENT AND PLAN: I will continue him on PT and OT at the present time. I plan to take him to rehab when he is ready and probably coming week. Thank you for this consult. I will keep him for about 2 weeks aiming to discharge to home at [facility] and follow on him on an outpatient basis. Thank you for this referral. I did discuss all the above plan with him. He verbalized understanding and agreement. MD SHARITA ZAVALA/nubial /[id number] d: 06/09/17 1140 t: 06/10/17 0751, CONSULTATION REPORT
--- NOTE | ~2017-06-04 | HP ---
PATIENT'S NAME: NICOLE WIN [facility] AGE: 82 Y [address] ROOM: [place] [address] LOCATION: [facility] ADMIT DATE: 06/04/2017 History & Physical DISCHARGE DATE: FAMILY PHYSICIAN: PHYSICIAN, UNKNOWN ATTENDING PHYSICIAN: Mervin Neal DATE OF SERVICE: CHIEF COMPLAINT: Diabetic foot with gangrenous change. HISTORY OF PRESENTING ILLNESS: This 82-year-old white male with a longstanding history of end-stage renal disease, on hemodialysis; peripheral arterial disease; and diabetes mellitus type 2, was sent back to [facility] from the vascular clinic after followup following a hospital stay for gangrenous left 3rd and 4th toe amputation. Briefly, he was hospitalized from 05/11 through 05/25/2017 following vascular evaluation outside. He was seen and evaluated by Dr. Sauer here and ultimately underwent 3rd and 4th toe amputation. Postoperatively, he did well, but his progress was slow because of his multiple competing medical comorbidities. Placement was a challenge. Eventually, he was discharged to a nursing facility with outpatient hemodialysis. Today and upon followup at the vascular clinic, he was found to have progressive gangrenous change at the left foot with poor wound healing. Dr. Sauer recommended hospitalization for further surgical intervention and/or amputation. On my evaluation, the patient reports feeling "okay." He denies any significant pain. Relates that he has been feeling well, denies chest pain or shortness of breath, denies any significant congestion or cough. He has been sleeping okay. His appetite is good, and he has been eating and drinking normally. He denies any abdominal pain. He stools regularly. He does not void and has been making hemodialysis appointments regularly according to his son. ALLERGIES: NO KNOWN DRUG ALLERGIES. ILLNESSES: 1. Diabetes mellitus, type 2. 2. End-stage renal disease. 3. Essential hypertension. 4. Peripheral arterial disease. PATIENT'S NAME: NICOLE WIN [facility] AGE: 82 Y [address] ROOM: [id number] [place] [address] LOCATION: [facility] ADMIT DATE: 06/04/2017 History & Physical DISCHARGE DATE: FAMILY PHYSICIAN: PHYSICIAN, UNKNOWN ATTENDING PHYSICIAN: Mervin Neal 5. Cerebrovascular disease with history of stroke with minimal residual effect. CURRENT MEDICATIONS: 1. Amlodipine 5 mg p.o. daily. 2. Levemir insulin 8 units subcutaneous q.a.m. and 10 units subcu q.p.m. 3. Insulin NovoLog per sliding scale. 4. Colace 100 mg p.o. b.i.d. 5. Protonix 40 mg p.o. q.h.s. 6. Losartan 25 mg p.o. daily. 7. Plavix 75 mg p.o. daily. 8. Aspirin 81 mg p.o. q.h.s. 9. Vitamin B complex with C and E daily. 10. Acetaminophen 650 mg p.o. or p.r. q.6 hours p.r.n. pain or fever. FAMILY HISTORY: Negative for heart attack or stroke. SOCIAL HISTORY: He is and currently resides at a nursing facility in [place]. He has a son who provides some social support. He has a significant history of smoking tobacco, approximately 50 pack years, but has currently quit. There is no significant history of alcohol use. REVIEW OF SYSTEMS: As per HPI. All other organ systems reviewed and are negative. OBJECTIVE: VITAL SIGNS: Temperature 99.1, pulse 102, respirations 23, blood pressure 169/64. Weight is 65.7 kilos, that is up from 63.1 at his recent hospital discharge. GENERAL: He is disheveled, but awake and conversational, in no acute distress. He is oriented x2 only (not oriented to time). SKIN: Supple, sallowed, warm, and dry. There are no obvious rashes. He has some scaling and crusting over the intertriginous areas of the toes on the right foot. There is an open eschar with some dark gangrenous change at the left foot and at the area of the 3rd and 4th digits. There is a little bit of cavernous change with some foul purulent discharge. No other skin rashes. HEENT: Otherwise, normocephalic. Sclerae nonicteric. Pupils are equal, round, and slow to react to light. Extraocular movements appear intact. Nasal turbinates are normal in appearance. Oropharynx is clear. Mucous membranes are pink and moist. NECK: Supple. Plethoric. No masses or adenopathy. No thyromegaly. No JVD. CHEST: Wall is symmetrical. HEART: Regular with occasional extrasystoles. PATIENT'S NAME: NICOLE WIN [facility] AGE: 82 Y [address] ROOM: [id number] [place], [place] [address] LOCATION: [facility] ADMIT DATE: 06/04/2017 History & Physical DISCHARGE DATE: FAMILY PHYSICIAN: PHYSICIAN, UNKNOWN ATTENDING PHYSICIAN: Mervin Neal LUNGS: Diminished with some end-expiratory wheezes. No areas of consolidation. ABDOMEN: Soft, protuberant, nontender. Bowel sounds present. No mass or hepatosplenomegaly. AND RECTAL: Not done. EXTREMITIES: Display cachexia. No cyanosis. No significant edema. NEUROLOGIC: Mentation is slowed. He is hard of hearing. There are no focal deficits. LABORATORY AND X-RAY DATA: CBC showed white blood cell count elevated at 17.2, hemoglobin 8.5, hematocrit 26.5, and platelets 443. Chemistries revealed BUN and creatinine 55 and 5.6 respectively, sodium and potassium 131 and 4.8, chloride and CO2 93 and 24, calcium 8.3, albumin was low at 2.7, glucose 251. PT/INR 9.8 and 0.93 respectively. ASSESSMENT/PLAN: 1. Diabetic foot on the left with gangrenous change. We will admit to inpatient care. We will perform local wound cares and provide supportive cares and clinical monitoring. He has already been evaluated by Vascular Surgery. We will plan for operative intervention tomorrow likely after hemodialysis. We will get additional laboratory workup with blood cultures and lactate and follow up on those when the results are known. We will hold off on any additional antibiotic therapy other than what has been ordered by Dr. Sauer. 2. End-stage renal disease, on hemodialysis. Plan for hemodialysis tomorrow. We will request consultation by Nephrology. Electrolytes are relatively stable appearing. 3. Peripheral arterial disease. We will plan to resume or continue anti- platelet therapy postoperatively. He would likely benefit from statin therapy at some point. 4. Essential hypertension, suboptimal control. We will plan to continue his home antihypertensive regimen and use p.r.n. hydralazine as needed. 5. Diabetes mellitus type 2. We will manage with Accu-Cheks and sliding scale insulin while he is inpatient. 6. Moderate protein-calorie malnutrition. Try to encourage balanced dietary intake. 7. Deep venous thrombosis prophylaxis. We will hold off on heparin or Lovenox in light of the potential for surgical intervention tomorrow. MERVIN NEAL MD PATIENT'S NAME: NICOLE WIN [facility] AGE: 82 Y [address] ROOM: [place] [address] LOCATION: [facility] ADMIT DATE: 06/04/2017 History & Physical DISCHARGE DATE: FAMILY PHYSICIAN: PHYSICIAN, UNKNOWN ATTENDING PHYSICIAN: Mervin Neal/chris /[id number] D: [id number] T: [id number] HISTORY & PHYSICAL
--- NOTE | ~2017-06-04 | CON ---
PATIENT'S NAME: NICOLE WIN [facility] AGE: 82 Y [address] ROOM: [place] [address] LOCATION: [facility] ADMIT DATE: 06/04/2017 Consultation DISCHARGE DATE: FAMILY PHYSICIAN: Mykel Robert MD ATTENDING PHYSICIAN: Sergey Leiva REFERRING PHYSICIAN: ANTONIETA HOGAN REASON FOR CONSULTATION: Gangrene, left lower extremity. HISTORY OF PRESENT ILLNESS: Mr. Win is an 82-year-old male, who has diabetes for at least 30 years, known peripheral vascular disease, and end-stage renal disease on dialysis, who just recently had been hospitalized with a gangrenous left 3rd and 4th toe that was amputated. He was discharged on 05/25. He went back in to see Dr. Sauer in followup and was noted to have progressive ischemia/gangrenous changes of his left foot, thus he was admitted to the hospital. He underwent an amputation above the knee on the left side on 06/05. The patient reports that he is feeling okay. He does not have pain. He does not have nausea or vomiting. He has had no fevers, chills, or sweats. He has had improvement in his white count since the amputation. He has been continued on cefazolin postoperatively. ID was asked to see and assist with any further antibiotic recommendations. PAST MEDICAL HISTORY: Significant for type 2 diabetes, end-stage renal disease, hypertension, peripheral arterial disease, CVA, and ongoing tobacco abuse. ALLERGIES: NONE KNOWN. MEDICATIONS: He is on cefazolin. FAMILY HISTORY: Negative for heart attack, stroke. SOCIAL HISTORY: He is , resides at a assisted facility in [place]. He continues to smoke according to his children. REVIEW OF SYSTEMS: Remaining review of systems all negative with pertinent positives and negatives in the HPI. PHYSICAL EXAMINATION: PATIENT'S NAME: NICOLE WIN [facility] AGE: 82 Y [address] ROOM: [address] [address] LOCATION: [facility] ADMIT DATE: 06/04/2017 Consultation DISCHARGE DATE: FAMILY PHYSICIAN: Mykel Robert MD ATTENDING PHYSICIAN: Sergey Leiva GENERAL: He does not look acutely ill. He is asleep but easily arouses and answers questions. He is nontoxic. VITAL SIGNS: His T-max is 99, blood pressure is 121/57, pulse 84, respirations 24. HEENT: NC/AT, EOMI, HIRAL. NECK: Supple. LUNGS: Clear. HEART: Regular. ABDOMEN: Soft, nontender. EXTREMITIES: His left AKA stump is dressed. On his right foot, he has dry eschar on several wounds without any drainage. I do not appreciate a pulse. The foot is a little cool. SKIN: Otherwise without rash. LABORATORY DATA: Blood cultures x2 from 06/05 have no growth to date. White count is 13.8 down from 17.2, hemoglobin 8.8, platelet count is 380. Sodium 136, potassium 4.1, chloride 102, bicarb 22, BUN 22, creatinine 2.9. ASSESSMENT: 1. 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 2. Peripheral vascular disease. 3. Chronic renal failure/end-stage renal disease, on hemodialysis. 4. Ongoing tobacco abuse. PLAN: No signs of infection on the right foot. Wounds are dry. It sounds like, he has ongoing and progressive ischemia on the right leg that is being monitored closely by Vascular Surgery. He may need more surgery there. We can keep him on cefazolin for now until we make sure his blood cultures are clear. The only thing he would require antibiotics at this point in time if he was bacteremic from his left leg prior to his amputation. If not, I do not think he needs ongoing antibiotics. Please call with questions. MD SARAH RUSSELL/chris /[id number] d: [id number] t: 06/07/17 0814, CONSULTATION REPORT
[~2017-06-04 17:00] MED LIST: AMOX TR-K CLV1 EAC3 PO; CLOPIDOGREL75 MG PO; COLESTID1 GM PO; COZAAR25 MG PO; HUMULIN 70100 UNIT/M; HUMULIN 70100 UNIT/M SUB-Q; LEVEMIR FL100 UNIT/1 SUB-Q; MYRBETRIQ50 MG PO; NORVASC5 MG PO; TRIPHROCAPS SOFT1 MG PO
[2017-06-04 18:04] LABS: BASOPHIL % 0.2 %; EOSINOPHIL # 0.3 K/uL (0.0-0.5); HEMATOCRIT 26.5 % (33.0-50.0); HEMOGLOBIN 8.5 g/dL (11.0-16.0); IMMATURE GRANULOCYTE # 0.1 K/uL (0.0-0.3); IMMATURE GRANULOCYTE % 0.5 %; LYMPHOCYTE # 1.9 K/uL (0.8-4.0); LYMPHOCYTE % 11.3 %; MCHC 32.1 gm/dL (32.0-36.5); MCV 96.7 fl (83.0-98.0); MONOCYTE % 5.9 %; MPV 8.7 fl (9.4-12.4); NEUTROPHIL # (ANC) 13.7 K/uL (1.4-9.0); NEUTROPHIL % 80.1 %; NRBC % 0 /100WBC (0-0.00); PLATELET COUNT 443 K/uL (150-450); RBC 2.74 M/uL (3.50-5.50); RDW-CV 16.1 % (11.9-14.6); WBC 17.2 K/uL (4.0-11.0)
[2017-06-04 18:13] LABS: INR - (THERAPEUTIC) 0.93 (0.92-1.07); PROTIME 9.8 SECONDS (9.8-11.4)
[2017-06-04 18:18] LABS: ANION GAP 18.8 (10.0-19.0); CALCIUM 8.3 mg/dL (8.5-10.5); POTASSIUM 4.8 mMol/L (3.7-5.1)
[2017-06-04 18:22] LABS: CREATININE 5.6 mg/dL (0.6-1.3)
--- NOTE | 2017-06-04 19:39 | NUR ---
82 YO Male, admitted this evening with past medical history of CKD; received Dialyis T//, DM II insulin dependent, PVD, CAD, HTN, Smokes occasionally and prior smoker for 60 years. History per son is approximately 5 weeks ago he was able to ambulate with his walker, however his weakness pregoressed and within the next week he could only ambulate by use of wheelchair, his weakness continued and now at the [facility] in [place] he primarily ambulates with a [id number] lift and has resided here for one week. 3 weeks ago he was seen by Dr. Sauer where 2 stents had been placed in his L) groin to help improve circulation to his foot, according to son his R) leg has significant blockage and has no sensation to his R) foot. AN amputation of the 3rd and 4th digit of the LLE was performed 2 days after stent placement. He was transferred to the [place] and had a f/u appointment with Camacho today who direct admitted the patient for a BTK amputation of the LLE. Arrived to floor AAOx3, does have dullness in sensation to his R) calf, absent sensation to his R) foot, does not withdraw to painful stimuli or localize pain when applying nail bed pressure or stroking heel of RLE. Obeys commands and moves spontaneously. Pupils 3mm brisk. SBP 150-160's, HR 90-100's, doppler'd LE's pulses. B.S. active, last BM today, incontinent of bowel and bladder. PIV L) hand SL'd. RUE fistula, bruit and thrill present. RR 14-21 on RA. Son at bedside providing history of patient.
--- NOTE | 2017-06-05 07:12 | NUR ---
Significant Event: PATIENT IS A/O, SOME PERIODS OF TIME WHERE HE IS CONFUSED RE: SITUATION BUT REORIENTS VERY QUICKLY. DULLNESS NOTED TO RLE FROM THE UPPER CALF TO THE ANKLE. SENSATION ABSENT FROM THE ANKLE DOWN. PULSES WEAK ET THREADY TO BLE, DOPPLER UTILIZED TO LOCATE PULSES. LS CLEAR/DIM, O2 SATS 88-92 % ON RA. PATIENT NPO AFTER MIDNIGHT FOR PROCEDURE THIS AM. L)FOOT HAS ESCHAR AREA WHERE 3RD-4TH TOE WAS AMPUTATED, SUTURES INTACT TO AREA, ESCAR SPREADING TO OTHER TOES. Follow up: L) AKA AMPUTATION SCHEDULED THIS MORNING
[2017-06-05 07:27] LABS: BASOPHIL # 0.1 K/uL (0.0-0.2); BASOPHIL % 0.4 %; EOSINOPHIL # 0.4 K/uL (0.0-0.5); EOSINOPHIL % 2.6 %; HEMOGLOBIN 7.6 g/dL (11.0-16.0); IMMATURE GRANULOCYTE # 0.3 K/uL (0.0-0.3); IMMATURE GRANULOCYTE % 1.7 %; LYMPHOCYTE % 13.7 %; MCH 30.5 pg (27.0-34.0); MCHC 31.7 gm/dL (32.0-36.5); MCV 96.4 fl (83.0-98.0); MONOCYTE # 1.1 K/uL (0.0-1.0); MONOCYTE % 7.3 %; MPV 8.9 fl (9.4-12.4); NEUTROPHIL # (ANC) 10.7 K/uL (1.4-9.0); NEUTROPHIL % 74.3 %; NRBC % 0 /100WBC (0-0.00); PLATELET COUNT 457 K/uL (150-450); RBC 2.49 M/uL (3.50-5.50); RDW-CV 15.8 % (11.9-14.6); WBC 14.4 K/uL (4.0-11.0)
--- NOTE | 2017-06-05 14:37 | NUR ---
Reviewed Klaus' chart and talked with her RN Marla. Marla says that he is going to go down today for an I&D of his right foot and then an AKA of his LLE. In reviewing his chart, it appears that he is a resident at [facility] so upon dismissal, I would assume he will return there when he is medically cleared to do so. CM to touchbase with him later today if back from the OR or tomorrow to discuss dismissal plans. CM to continue to follow and assist.
--- NOTE | 2017-06-05 19:06 | NUR ---
Significant Event: In dialysis and surgery most of the day. Drowsy but arouses easily. Forgets where he is at times but reorients easily. Vital signs stable. Family present this evening for a short time. Follow up: continue
--- NOTE | 2017-06-05 23:10 | NUR ---
Significant Event: Patient is A/O, denies pain or discomfort. LS clear, SpO2 >90% on RA. BS x4, inc of loose stool x1. Clear liquid diet, ate 25% of dinner. Takes meds whole without difficulty. L)AKA has dressing CDI, patient reports surgical block is still effective. RLE pulses weak et thready, patient reports dull sensation to calf et no sensation to foot, able to perform gross motor mvmnt only. Follow up: Transfer to PCU
--- NOTE | 2017-06-06 00:41 | NUR ---
Recieved patient from ICU by Christina ATKINSON. Patient arrived to [facility] @1497.
[2017-06-06 03:51] LABS: BASOPHIL % 0.3 %; EOSINOPHIL # 0.2 K/uL (0.0-0.5); EOSINOPHIL % 1.5 %; HEMATOCRIT 27.1 % (33.0-50.0); HEMOGLOBIN 8.8 g/dL (11.0-16.0); IMMATURE GRANULOCYTE # 0.1 K/uL (0.0-0.3); IMMATURE GRANULOCYTE % 0.6 %; LYMPHOCYTE # 1.4 K/uL (0.8-4.0); LYMPHOCYTE % 10.4 %; MCH 30.7 pg (27.0-34.0); MCHC 32.5 gm/dL (32.0-36.5); MCV 94.4 fl (83.0-98.0); MONOCYTE # 1.1 K/uL (0.0-1.0); MONOCYTE % 8.2 %; MPV 8.8 fl (9.4-12.4); NEUTROPHIL # (ANC) 10.9 K/uL (1.4-9.0); NRBC % 0 /100WBC (0-0.00); PLATELET COUNT 380 K/uL (150-450); RBC 2.87 M/uL (3.50-5.50); RDW-CV 17.4 % (11.9-14.6); WBC 13.8 K/uL (4.0-11.0)
[2017-06-06 04:03] LABS: ALBUMIN 2.5 gm/dL (3.5-5.0); ANION GAP 16.1 (10.0-19.0); CREATININE 2.9 mg/dL (0.6-1.3); POTASSIUM 4.1 mMol/L (3.7-5.1); TOTAL PROTEIN 6.7 g/dL (6.0-8.4)
[2017-06-06 04:06] LABS: CALCIUM 7.4 mg/dL (8.5-10.5); TOTAL BILIRUBIN 0.4 mg/dL (0.0-1.5)
--- NOTE | 2017-06-06 04:58 | NUR ---
Significant Event: A/O x3. Drowsy. Afebrile. Left leg phantom pain. Morphine x1, norco x1 given. VSS on RA/1L hs. SBP 100s-160s. LS clear/dim. Doppler rt foot pulses. Left AKA with gauze, kerlex, MARY KATE wrap. Accucheck q 6 hrs, coverage needed. Rt upper arm fistula with present bruit and thrill. Follow up: Continue to monitor per plan of care.
[2017-06-06] MEDS ORDERED: ASPIRIN LO-DOSE81 MG PO (15:51)
[2017-06-06] MEDS ORDERED: COLACE100 MG PO (15:52)
[2017-06-06] MEDS ORDERED: GLUCAGON 1 MG PE1 MG SUB-Q (15:54)
[2017-06-06] MEDS ORDERED: GLUCOSE4 GM PO (15:55)
[2017-06-06] MEDS ORDERED: NOVOLOG FL100 UNIT/1 SUB-Q ×2 (15:59→16:03)
[2017-06-06] MEDS ORDERED: PROTONIX40 MG PO (16:04)
[2017-06-06] MEDS ORDERED: TYLENOL325 MG PO (16:05)
--- NOTE | 2017-06-06 19:04 | NUR ---
Significant Event: Alert and oriented X 3. Room air during the day and 1L while sleeping. VSS. Nauseated and emesis X 1 this shift, zofran given X1. Clear liquid diet. Peripheral IV to left hand, flushes well with good blood return. Fistula to right upper arm good brute and thrill. Dialysis Tuesdays, and Saturdays. Dressing to left left leg clean dry and intact. Morphine given X 1 at 1638 and [place] given X 1 at 1330. Pleasant and cooperative with cares. Follow up: Midline IV to be put in tomorrow.
[2017-06-07 03:24] LABS: BASOPHIL # 0.1 K/uL (0.0-0.2); BASOPHIL % 0.4 %; EOSINOPHIL # 0.2 K/uL (0.0-0.5); EOSINOPHIL % 1.9 %; HEMATOCRIT 26.8 % (33.0-50.0); HEMOGLOBIN 8.6 g/dL (11.0-16.0); IMMATURE GRANULOCYTE # 0.1 K/uL (0.0-0.3); IMMATURE GRANULOCYTE % 0.7 %; LYMPHOCYTE # 1.4 K/uL (0.8-4.0); LYMPHOCYTE % 10.4 %; MCH 30.5 pg (27.0-34.0); MCHC 32.1 gm/dL (32.0-36.5); MONOCYTE # 1.1 K/uL (0.0-1.0); MONOCYTE % 8.1 %; MPV 8.7 fl (9.4-12.4); NEUTROPHIL # (ANC) 10.2 K/uL (1.4-9.0); NEUTROPHIL % 78.5 %; NRBC % 0 /100WBC (0-0.00); PLATELET COUNT 374 K/uL (150-450); RBC 2.82 M/uL (3.50-5.50); RDW-CV 17.2 % (11.9-14.6)
[2017-06-07 03:40] LABS: ALBUMIN 2.2 gm/dL (3.5-5.0); ALK PHOS 77 IU/L (33-138); ANION GAP 21.3 (10.0-19.0); AST 18 IU/L (10-40); BLOOD UREA NITROGEN 32 mg/dL (6-24); CALCIUM 7.8 mg/dL (8.5-10.5); CHLORIDE 103 mMol/L (96-110); CO2 18 mMol/L (22-32); POTASSIUM 4.3 mMol/L (3.7-5.1); SODIUM 138 mMol/L (135-145); TOTAL PROTEIN 6.7 g/dL (6.0-8.4)
[2017-06-07 03:44] LABS: ALT < 10 IU/L (12-78); CREATININE 4.4 mg/dL (0.6-1.3); TOTAL BILIRUBIN 0.3 mg/dL (0.0-1.5)
--- NOTE | 2017-06-07 04:42 | NUR ---
Significant Event: Patient alert and oriented x3. Flat affect. SBP 150s-160s. HR 80s-90s. All other vital signs stable. On RA-2L O2 with sleep. No complaints of pain this shift. Repositioned patient when allowed. No urine output. Slept most of the shift. Dopplered right foot tibial pulse. Unable to palpate/dopple pedal pulse to right foot. MDs aware. Left AKA dressing C/D/I. Q6 accuchecks continue. Treated per moderate sliding scale. Left upper arm fistula with bruit and thrill. Poor appetite. Patient calm and cooperative with all cares. Follow up: Dialysis today.
--- NOTE | 2017-06-07 12:43 | NUR ---
1200 Came by to see Connor, he was not in his room right now so I will stop back by and see him later to talk with him about dismissal plans. CM to continue to follow and assist.
--- NOTE | 2017-06-07 15:54 | NUR ---
1400, UNABLE TO THREAD POWER GLIDE
--- NOTE | 2017-06-07 17:31 | NUR ---
Significant Event: Patient is alert/oriented x3, forgetful at times. Vital signs are stable. On room air during the day, sometimes requires 1-2L O2 but takes off NC. Patient had dialysis today, 2 kg removed. He will now have dialysis MWF. Patient now has diet order to advance as tolerated, will attempt pureed foods for supper. [place] given x2 today, with relief. L) above the knee amputation; stump is covered with dressing, C/D/I. Order to clean sores on right foot with betadine daily. Follow up: Continue to monitor per plan of care.
--- NOTE | 2017-06-08 05:24 | NUR ---
Significant Event: PATIENT A/O X3. VSS. SBP 130'S HR LOW 90'S. O2 2L PER NASAL CANNULA. C/O PAIN THIS AM NORCO GIVEN 0500. NO URINE OUTPUT. DOPPLER TO RIGHT TIBIAL PULSE. UNABLE TO PALPATE RIGHT PEDAL PULSE. ACCU CHECKS Q6 HRS WITH MODERATE SLIDING SCALE. PATIENT PULLED OUT IV IN LEFT WRIST, MIDLINE TO BE ATTEMPTED THIS MORNING. FISTULA IN IN LEFT UPPER ARM WITH BRUIT AND THRILL. PATIENT HAD PUREED FOOD FOR SUPPER MEAL, ATE 25% POOR APPETITE. LEFT LEG AMPUTATION ABOVE KNEE, BANDAGE TO BE CHANGED BY DR HUTCHINSON TODAY. BETADINE APPLIYED TO RIGHT FOOT SORES ON TOES AND TOP OF FOOT. DIAYLSIS MWF. Follow up: FOLLOW CARE PLAN
[2017-06-08 05:26] LABS: BASOPHIL % 0.3 %; EOSINOPHIL # 0.3 K/uL (0.0-0.5); EOSINOPHIL % 2.4 %; HEMATOCRIT 28.8 % (33.0-50.0); HEMOGLOBIN 9.3 g/dL (11.0-16.0); IMMATURE GRANULOCYTE # 0.1 K/uL (0.0-0.3); IMMATURE GRANULOCYTE % 0.9 %; LYMPHOCYTE # 1.8 K/uL (0.8-4.0); LYMPHOCYTE % 15.1 %; MCH 30.5 pg (27.0-34.0); MCHC 32.3 gm/dL (32.0-36.5); MCV 94.4 fl (83.0-98.0); MONOCYTE # 1.1 K/uL (0.0-1.0); MONOCYTE % 9.5 %; MPV 8.8 fl (9.4-12.4); NEUTROPHIL # (ANC) 8.6 K/uL (1.4-9.0); NEUTROPHIL % 71.8 %; NRBC % 0 /100WBC (0-0.00); PLATELET COUNT 403 K/uL (150-450); RBC 3.05 M/uL (3.50-5.50); RDW-CV 16.6 % (11.9-14.6)
[2017-06-08 05:37] LABS: ALBUMIN 2.3 gm/dL (3.5-5.0); ALK PHOS 97 IU/L (33-138); ANION GAP 17.1 (10.0-19.0); AST 23 IU/L (10-40); BLOOD UREA NITROGEN 18 mg/dL (6-24); CALCIUM 8.3 mg/dL (8.5-10.5); CHLORIDE 100 mMol/L (96-110); CO2 23 mMol/L (22-32); CREATININE 2.7 mg/dL (0.6-1.3); POTASSIUM 4.1 mMol/L (3.7-5.1); SODIUM 136 mMol/L (135-145)
[2017-06-08 05:38] LABS: ALT < 10 IU/L (12-78); TOTAL BILIRUBIN 0.4 mg/dL (0.0-1.5)
--- NOTE | 2017-06-08 06:39 | NUR ---
Significant Event: PATIENT A/O X2 WITH INCREASED CONFUSION THROUGHTOUT THE NIGHT. PATIENT BECAME AGITAITED AND AGRESSIVE TOWARD STAFF, TRYING TO CLIMB OUT OF BED. RESTRAINTS WERE PLACED AT 2140, AND DR CARRILLO WAS NOTIFIED AND HALDOL IM WAS ORDERED. PATIENT HAS RT JUGULAR 4 LUMEN, WITH D51/2 NS AT 120ML/HR. PATIENT HAS ILIOCONDUIT ON RIGHT LOWER ABDOMEN, WITH GOOD UOP. MATTEO DRAIN ON LEFT SIDE WITH SEROSANGUOUS DRAINAGE. PATIENT IS TO GET OUT OF BED TODAY PT AND OT ORDERED BY DR MOSLEY. VSS. SBP 158-160 HR LOW 90'S. PATIENT SATS VARIED THROUGHOUT THE NIGHT, FROM 4-6 L PER NC. Follow up: FOLLOW CARE PLAN.
--- NOTE | 2017-06-08 12:20 | NUR ---
1210 Came by to see Connor but he was down in dialysis. Will stop back by to see him later today and talk about dismissal plans with him. GIRP vs SNF upon dismissal. CM to continue to follow and assist.
--- NOTE | 2017-06-08 13:41 | NUR ---
A-NUTRITION F/U S/P L)AKA. HD M/W/FRI WHILE IN THE HOSPITAL. INCREASE IN CONFUSION LAST EVENING. LABS: NA 136, K+ 4.1, GLU 215, BUN 18, FORENSIC CHEMIST 2.7, ALB 2.3 DIET RX: PUREE W/GLUCERNA BID. ONLY 4 MEALS RECORDED SINCE ADMIT. PO INTAKE 0-75%. INTAKE OF BRK TODAY WAS 50-75%. EST NUTR NEEDS: 2025 KCALS AND 76-95 GM PROTEIN D-AT NUTRITION RISK W/INADEQUATE ORAL INTAKE R/T ALTERED MENTAL STATUS AEB INTAKE RECORDS, CHART REVIEW. I-INCREASE GLUCERNA FROM BID TO TID M/E-GOAL: PO INTAKE >/=50% BY NEXT F/U 1)F/U PO INTAKE, SKIN, AND POC IN 3-5 DAYS 2)ASSIST NEEDED
--- NOTE | 2017-06-08 17:50 | NUR ---
Significant Event: A/O X2, disoriented to time, to dialysis today, R)AV fistula +bruit/+thrill, Powerglide saline lock L)upper arm, o2 2l/nc, lungs dim BLL, LLE drsg changed by SHELLEY LIMA with dry scabs & sores between toes, pulse dopplered. norco @ 1100. poor appetite. drowsy after dialysis. Follow up: accuchecks q6hr plan for dialysis Sunday - GIRP consult
[2017-06-09 04:48] LABS: BASOPHIL # 0.1 K/uL (0.0-0.2); BASOPHIL % 0.4 %; EOSINOPHIL # 0.4 K/uL (0.0-0.5); EOSINOPHIL % 2.8 %; HEMATOCRIT 29.7 % (33.0-50.0); HEMOGLOBIN 9.6 g/dL (11.0-16.0); IMMATURE GRANULOCYTE # 0.1 K/uL (0.0-0.3); LYMPHOCYTE # 1.9 K/uL (0.8-4.0); LYMPHOCYTE % 15.4 %; MCH 30.6 pg (27.0-34.0); MCHC 32.3 gm/dL (32.0-36.5); MCV 94.6 fl (83.0-98.0); MONOCYTE # 1.2 K/uL (0.0-1.0); MONOCYTE % 9.2 %; NEUTROPHIL % 71.2 %; NRBC % 0 /100WBC (0-0.00); PLATELET COUNT 426 K/uL (150-450); RBC 3.14 M/uL (3.50-5.50); RDW-CV 16.4 % (11.9-14.6); WBC 12.6 K/uL (4.0-11.0)
[2017-06-09 05:02] LABS: ALBUMIN 2.6 gm/dL (3.5-5.0); ALK PHOS 96 IU/L (33-138); AST 27 IU/L (10-40); BLOOD UREA NITROGEN 17 mg/dL (6-24); CALCIUM 8.4 mg/dL (8.5-10.5); CHLORIDE 99 mMol/L (96-110); CO2 24 mMol/L (22-32); CREATININE 2.2 mg/dL (0.6-1.3); SODIUM 136 mMol/L (135-145); TOTAL PROTEIN 7.1 g/dL (6.0-8.4)
[2017-06-09 05:04] LABS: ALT < 10 IU/L (12-78); TOTAL BILIRUBIN 0.3 mg/dL (0.0-1.5)
--- NOTE | 2017-06-09 05:10 | NUR ---
Significant Event:A/Ox3, forgetful at times but reorients easily. VSS. Weaned to RA, lung sounds cl/dim t/o. Fistula to upper R)arm with good bruit and thrill. Powerglide to upper L)arm. BP to lower L)arm. L)AKA drsg c/d/i. R)leg scabs and bruising t/o. Doppler R)post tib pulse. Incontinent of urine x1 large void with scant BM noted. No c/o pain or request for pain medication. BG 179-192 2 units given each time. Accuchecks q6h. Follow up:GIRP consult today.
--- NOTE | 2017-06-09 15:29 | NUR ---
Significant Event: AOX3 WITH OCCASIONAL CONFUSION, REORIENTS EASILY. VSS ON RA. FISTULA TO R)UA, +BRUIT/+THRILL. L)LENNY OLVERA CHANGED THIS SHIFT, CURRENTLY C/D/I. MIDLINE TO L)UA SL. SCABS AND BRUSING THROUGHOUT. BETADINE SCRUB TO R)FOOT/TOES ECHAR. UNABLE TO ASSESS R)DORSALIS PEDIS. R)POST TIB, DOPPLERED. ANURIA. NORCO X1 GIVEN FOR PHANTOM PAIN AT 1101 WITH RELIF. ACCUCHECKS Q6H. PATIENT IS TO LAY PRONE BID FOR 10 MIN. PT/OT CONSULTED. PLAN TO TRANSFER TO [facility] WHEN BED AVALIBLE.
--- NOTE | 2017-06-10 04:56 | NUR ---
Significant Event: Patient is alert/oriented x3, forgetful at times. Vital signs are stable. Remains on room air. Denies any pain. Patient was assisted back to bed from the recliner with 2 person assist and gait belt; he did not follow directions well and refused to bear any weight on his right leg. Follow up: Waiting for [facility] bed to be available.
--- NOTE | 2017-06-10 15:50 | NUR ---
Significant Event: Alert/Orientedx3. Forgetful at times. Reorients well. VSS on room air. L) UA midline saline locked. Q2HR turns. Planning dyalysis tomorrow am. L) AKA dressing changed, C/D/I. Betadine applied to R) foot escar areas. Patient took 1 norco for pain this am and has denied pain since.
--- NOTE | 2017-06-11 05:47 | NUR ---
Significant Event: PATIENT A/O X3. SBP 130-160 HR 80-90 O2 SATS 94% RA. DOPPLER TO RIGHT DORSAL PULSE. PEDAL PULSE ABSENT. RIGHT ARM FISTULA. DIALYSIS MWF. PATIENT HAS LEFT MIDLINE SL. DENIES PAIN. FULL LIFT. REPO Q 2HR. Follow up: FOLLOW CARE PLAN.
[2017-06-11 09:52] LABS: BASOPHIL % 0.3 %; EOSINOPHIL # 0.5 K/uL (0.0-0.5); EOSINOPHIL % 3.5 %; HEMATOCRIT 26.7 % (33.0-50.0); HEMOGLOBIN 8.7 g/dL (11.0-16.0); IMMATURE GRANULOCYTE # 0.1 K/uL (0.0-0.3); IMMATURE GRANULOCYTE % 0.7 %; LYMPHOCYTE # 1.8 K/uL (0.8-4.0); LYMPHOCYTE % 13.2 %; MCH 30.9 pg (27.0-34.0); MCHC 32.6 gm/dL (32.0-36.5); MCV 94.7 fl (83.0-98.0); MONOCYTE # 0.9 K/uL (0.0-1.0); MONOCYTE % 6.2 %; MPV 9.2 fl (9.4-12.4); NEUTROPHIL # (ANC) 10.4 K/uL (1.4-9.0); NEUTROPHIL % 76.1 %; NRBC % 0 /100WBC (0-0.00); PLATELET COUNT 447 K/uL (150-450); RBC 2.82 M/uL (3.50-5.50); RDW-CV 15.8 % (11.9-14.6); WBC 13.6 K/uL (4.0-11.0)
[2017-06-11 10:06] LABS: ALBUMIN 2.3 gm/dL (3.5-5.0); ANION GAP 18.2 (10.0-19.0); CALCIUM 8.1 mg/dL (8.5-10.5); CREATININE 5.4 mg/dL (0.6-1.3); PHOSPHORUS 3.4 mg/dL (2.5-4.9); POTASSIUM 4.2 mMol/L (3.7-5.1)
--- NOTE | 2017-06-11 11:34 | NUR ---
1010 Came by to talk with Connor but he was down in dialysis so I wasn't able to speak with him. I did review his notes from the weekend and also saw that was consulted to see if Connor might be a good GIRP canidate. In reviewing ' consult, he wrote that he thinks that Connor would be a good GIRP canidate. I phoned over to Millie on GIRP to see if she feels the same. Millie didn't answer the phone so a VM was left with her. Will see what she thinks about taking Connor to GIRP. If they can accept, I will talk with Connor and family about this and then proceed with dismissal plans from there. CM to continue to follow and asssit.
--- NOTE | 2017-06-11 15:24 | NUR ---
A-NUTRITION F/U DIALYSIS MWF LABS: NA 135, K+ 4.2, GLU 250, BUN 53, DIAGNOSTIC RADIOLOGIST 5.4, ALB 2.3 MEDS: NOVOLOG (MOD SS). TEXTURE OF DIET UPGRADED FROM PUREE TO REGULAR. DIET RX: CONSISTENT CARB W/GLUCERNA TID. PO INTAKE 25-75%. VISITED W/PT AND FAMILY. PT DOES NOT LIKE THE GLUCERNA AND DOES NOT WANT IT. STATES APPETITE IS OKAY. EST NUTR NEEDS: 2025 KCALS AND 76-95 GM PROTEIN D-AT NUTRITION RISK W/INADEQUATE ORAL INTAKE R/T RECENT ALTERED LOC, ALTERED APPETITE AEB INTAKE RECORDS, CHART REVIEW. I-D/C GLUCERNA TID, PER PT REQUEST M/E-GOAL: PO INTAKE >/=50% BY NEXT F/U 1)F/U PO INTAKE AND POC IN 3-5 DAYS 2)ASSIST NEEDED
--- NOTE | 2017-06-11 16:28 | NUR ---
Significant Event:VSS, Rates pain in lower back and LLE at 4-7/10, Chadwick 2 tabs at 1530. Pt did receive Chadwick 1 tab and Dilaudid 1mg while in dialysis. Pt had 2.5L off today, and 25gm of Albumin in dialysis. Tolerated well. LLE stump dsg changed with small amount of bloody drainage noted, von apprear intact. RLE has sores on foot, pedal pulses doppled. Foot is slightly cool. Ate both meals. Continues with ACHS, moderate SSI. GOLDEN midline, CHAVEZ fistula with good bruit/thrill. Follow up:Dialysis on Sunday, continue to monitor.
--- NOTE | 2017-06-12 04:49 | NUR ---
Significant Event: Pt A&Ox3, but forgetful. VS stable, remains on RA. Doppler only to R) pedal and tibial pulses. L) AKA reimbursement consultant remains C/D/I. No c/o pain. Does need help turning on sides. CHAVEZ fistula, bruit and thrill present. GOLDEN midline, SL. Scab on R) heel and top of R) foot, betadine applied qd. No feeling in R) foot. Accuchecks ACHS, moderate scale. Had 2.5L off at HD yesterday. Follow up: HD on Sunday. Continue plan of care.
--- NOTE | 2017-06-12 11:13 | NUR ---
Talked with Connor and his son Connor OLMEDO, let them know that [facility] would accept on if he was he was medically stable to transfer at that time and also if he was able to tolerate the 3 hours of therapies that was required by GIR. I talked with Connor and his son and explained if he couldn't tolerate GIRP, we might have to look into going to a SNF instead. Son voices concerns about him going back to [facility] in [place] as "they didn't take care of him there, his bed sores got worse, they would leave him in the same cloths for days and they just really didn't care for him there like he need to be cared for." I explained to him that I could look into different SNFs for him, but it might be difficult since he has dialysis in [place] on //Sun and alot of SNFs are unable to transport on the weekends or accomidate someone with dialysis. Son voiced understanding to this. He let me know that he would like for me to look into SNFs in [facility] and [place]. I let him know that I would do this. We are still wanting for Connor to be able to go to [facility] when he is ready to leave Acute Care, but we are just looking into SNF options incase he isn't able to tolerate the three hours of therapies that is needed to go to [facility]. No other questions, needs or concerns. CM to continue to follow and assist. Plan GIRP on at 0900.
--- NOTE | 2017-06-12 13:44 | NUR ---
[facility] note: Consult received, reviewed chart with blood sugars ranging 191-300's Wrote recommendation for MD to restart doses of insulin that patient was being given in [facility], prior to admission. Levemir 14 units daily and Novolog 5 units TID and mild sliding scale
--- NOTE | 2017-06-12 16:56 | NUR ---
Significant Event: Pt A/O x3, intermittently disoriented to time. Pt's blood sugars trend high. Beason 5-325 mg 2 tabs last given at 1145, pt denies pain. Pt up to chair via slideboard this afternoon. No urine output or BM this shift. Dressing on L) leg changed and betadine applied to sores on R) foot. Left upper arm midline saline locked. Follow up:
--- NOTE | 2017-06-13 04:30 | NUR ---
Significant Event: Pt A&Ox3, but forgetful to time. VS stable, remains on RA. Did have c/o pain overnight. Gave 1 Bladen @ 2220 and 2 Bladen @ 0125, both with relief. Pt turned himself back and forth in the bed without difficulties. AV fistula with bruit and thrill present in CHAVEZ. PIV midline to GOLDEN SL. Pt to have HD today. Follow up: Continue plan of care. If stable enough, can d/c to [facility] on .
--- NOTE | 2017-06-13 10:45 | NUR ---
Diabetes Consult: The patient is currently off the unit and in dialysis. Spoke with the patient's primary nurse, who reports the patient was taken out of a skilled facility and family is not wanting him to return. There is some question as to who will provide care for the patient and where he is going on discharge. Currently, the patient's blood sugars have improved to a fasting blood sugar of 166 after restarting his home medication dose of Levemir and Novolog. Will continue to follow.
--- NOTE | 2017-06-13 11:56 | NUR ---
Call back and VM from [facility] and [facility], they can not accept at this time. I heard back from [facility], they would be willing to take but son has to be able to transport him to dialysis on Saturdays. Will call and talk with the son about this and see what he thinks about this. I also called [facility] in [place], left a VM with Denise asking that she phone me back re:Connor coming back to them. I also went back and reviewed NOBLE Harrington' notes from Klaus' previous stay and at that time she had contacted numerous SNFS around the area and none were able to accept due to dialysis needs and/or being full so I am planning on talking more with the son about this as well as goign back to [facility] might be the only option at this point if he isn't able to tolerate [facility] and no other SNF will accept. CM to continue to follow and assist.
--- NOTE | 2017-06-13 17:22 | NUR ---
Significant Event: Pt A/O x3 at 0730 today. Pt left for dialysis from approximately 0745 to 1400, 1.6 L taken off. Pt returned from dialysis disoriented x3. [place] 5-325mg 1 tab given at 0729. Dilaudid 1mg IV at 0930 given in dialysis for back pain. Pt has not voided this shift. Pt has not had a BM since 06/08. Colace 100mg PO given at 1439. Follow up: Awaiting placement.
--- NOTE | 2017-06-14 05:25 | NUR ---
Patient states he is in [place] but does not know where at or the time. 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 Lung sounds clear and diminished on RA. One moderate stool. Fever of 101.6 at 1900. Tylenol 650mg given and temp went down to 99.2. BPs as low as 97/40, taken lying down in left FA. All other VSS. Patient does not walk. Has been sleeping all of shift. No c/o pain. Pulses heard with doppler. PT/OT working with patient.
--- NOTE | 2017-06-14 07:55 | NUR ---
Diabetes consult: Patient with blood sugars well controlled. He is not a candidate for education at this time. Awaiting placement.
[2017-06-14 09:34] LABS: BASOPHIL # 0.1 K/uL (0.0-0.2); BASOPHIL % 0.6 %; EOSINOPHIL # 0.2 K/uL (0.0-0.5); EOSINOPHIL % 1.2 %; HEMATOCRIT 29.1 % (33.0-50.0); HEMOGLOBIN 8.9 g/dL (11.0-16.0); IMMATURE GRANULOCYTE # 0.1 K/uL (0.0-0.3); IMMATURE GRANULOCYTE % 0.7 %; LYMPHOCYTE # 1.7 K/uL (0.8-4.0); LYMPHOCYTE % 13.4 %; MCH 29.8 pg (27.0-34.0); MCHC 30.6 gm/dL (32.0-36.5); MCV 97.3 fl (83.0-98.0); MONOCYTE # 1.1 K/uL (0.0-1.0); MONOCYTE % 8.2 %; MPV 8.7 fl (9.4-12.4); NEUTROPHIL # (ANC) 9.8 K/uL (1.4-9.0); NEUTROPHIL % 75.9 %; NRBC % 0 /100WBC (0-0.00); PLATELET COUNT 431 K/uL (150-450); RBC 2.99 M/uL (3.50-5.50); RDW-CV 15.9 % (11.9-14.6); WBC 12.9 K/uL (4.0-11.0)
--- NOTE | 2017-06-14 11:02 | NUR ---
904 Call to [facility] to see if they were still thinking about taking Connor to [facility] or if they felt like he would be a better SNF canidate. She states that she is going to review his information and talk with therapies and then get back to me. I did go up and review his chart, it appears that he was started in IV Zosyn BID last night for fevers. I don't know how long he is going to be on those at this point. Will wait to hear back from [facility] on [facility] and then continue to proceed with dismissal plans after that. CM to continue to follow and assist.
--- NOTE | 2017-06-14 11:52 | NUR ---
A - NUTRITION FOLLOW-UP S/P L) AKA. HD PT. VISITED PT THIS AM, SEEMS TO HAVE DEPRESSED MOOD. WAITING FOR PLACEMENT. WT STABLE SINCE SURGERY ON 06/05 PER RECORD. LABS: GLU 250, BUN 53, CREA 5.4, ALB 2.3 NEW MEDS: LEVEMIR DIET: CONSISTENT CARBS. INTAKE 46% X9 MEALS. DISLIKES GLUCERNA. PT REPORTED APPETITE WAS FINE. ENCOURAGED ORAL INTAKE FOR WOUNDS HEALING AND HD. DISCUSSED LIKES AND DISLIKES. EST NEEDS: 2205 KCAL, 76-95 GRAMS PROTEIN, FLUID NEEDS: 1ML/KCAL OR PER MD D - INADEQUATE ORAL INTAKE RELATED TO DECREASED APPETITE EVIDENCED BY PO 46% X9 MEALS. I - PT AGREED TO TRY HARD COOKED EGG AT [facility]; CHICKEN/EGG/TUNA SALAD W/ CRACKER SNACK ONCE DAILY. M/E - GOAL: PT WILL BE ABLE TO TOLERATE >50% OF MEALS AND AT LEAST ONE SNACK PER DAY IN 3-5 DAYS.
--- NOTE | 2017-06-14 15:51 | NUR ---
Significant Event: pt had PT OT get him slide board to and from chair today, up several hours, tylenol given for back. HGB 8.9. Betadine to r)foot. Antibiotics continue. Pt not richard got [facility] will look at skilled. Pt son here with him today Follow up:
--- NOTE | 2017-06-15 03:18 | NUR ---
Pt alert. knows place, person, and month. VSS on Ra, Afebrile all shift. con't on iv zosyn to mid line in GOLDEN-no blood return on this. Fistula in CHAVEZ with good thrill/bruit. Should have HD today as he is a MWF run. did no get out of bed. no urine output. no stools. turns with help. ampusheild in place over L AKA. no pain meds given this shift. Plan: per son possible R leg amputation eventually.
[2017-06-15 05:36] LABS: ALBUMIN 2.8 gm/dL (3.5-5.0); ANION GAP 14.7 (10.0-19.0); CALCIUM 8.4 mg/dL (8.5-10.5); PHOSPHORUS 4.7 mg/dL (2.5-4.9); POTASSIUM 4.7 mMol/L (3.7-5.1)
[2017-06-15 05:39] LABS: CREATININE 4.1 mg/dL (0.6-1.3)
--- NOTE | 2017-06-15 15:41 | NUR ---
NOBLE Thompson with calls to facilities to see if they are able to transport patient to Dialysis in [place]. [facility] in [place] state they do not transport patient's to dialysis. Phone call to [facility] at [phone] and was told they do not transport to dialysis. Phone call to [facility] at [phone] and they will transport to [place] for dialysis DEPENDING on the dialysis schedule as they only have one ready mix truck driver so they need diaysis patients to go on same day/schedule. They currently have a patient going on MWF and this patient has a TT dialysis time. [facility] would not be able to accept due to that and not having any male beds available at this time. It may be worth calling the Dialysis Center in [place] to see if they could change patient to a MWF time in case [facility] ends up with a male bed available next week. I called [facility] and they do transport to dialysis in [place], but are not sure they can offer transportation to [facility] dialysis times. I spoke to Edilia at [facility] and she asked me to fax her information and she will take a look to see if they can meet the patients needs. Information faxed to her at [phone].
--- NOTE | 2017-06-15 16:37 | NUR ---
Significant Event: A/Ox3. VSS on RA. L) FA midline saline locked. R) arm fistua. Patient had 2L off in dyalysis. L) AKA incision open to air with von. Ampsheild on patient. Patient had norco x1 for pain in L)AKA with releif. Total lift. Working with PT/OT. Changed to MSU status. Follow up: Awating placement. Continue IV ATB.
--- NOTE | 2017-06-16 03:43 | NUR ---
Pt a/o, forgetfull occasionally confused. vss on RA, afebrile. medsurg status. portable tele box. HD mwf- fistula to CHAVEZ good thrill/bruit. GOLDEN midline- dressing needs changed, no blood return-but flushes fine. zosyn iv. no bms. no voids (anuric). Plan: waiting for SNF placement
--- NOTE | 2017-06-16 11:57 | NUR ---
A-NUTRITION F/U SPOKE W/PT RE: PM SNACK AND HARD BOILED EGG. HE HAS A FLAT AFFECT DURING OUR VISIT. STATES HE DOES NOT KNOW IF HE LIKES HIS PM SNACK. ENCOURAGED HIM TO TRY THE SANDWICH AND CRACKERS. PT SAYS HE LIKES THE HARD BOILED EGG AT [facility]. WHEN ASKED HOW HIS APPETITE IS HE REPLIES, "OKAY." NO CBW. HD YESTERDAY; 2 L REMOVED. L)AKA OPEN TO AIR W/KAILASH 06/15 LABS: NA 135, K+ 4.7, GLU 159, BUN 41, ZONING ASSISTANT 4.1, ALB 2.8 MEDS: 06/15 ZOSYN DIET RX: CONSISTENT CARB W/HARD BOILED EGG AT [facility] AND PM SNACK. PT REFUSES OTHER OFFERS OF SUPPLEMENT OPTIONS. PO INTAKE HAS BEEN 0-100% SINCE LAST F/U. AVG PO INTAKE FOR THE LAST 5 DAYS IS 62%. EST NUTR NEEDS: 2205 KCALS AND 76-95 GM PROTEIN D-AT NUTRITION RISK W/INADEQUATE ORAL INTAKE R/T ALTERED APPETITE AEB INTAKE RECORDS, PT REPORT. I-CONTINUE W/CURRENT NUTRITION INTERVENTIONS ENCOURAGED PT TO INCREASE PO INTAKE TO PROMOTE WOUND HEALING M/E-GOAL: PO INTAKE >/=50% WITH NO REFUSALS OR ZERO INTAKE OF MEALS BY NEXT F/U 1)F/U PO INTAKE, PM SNACK, WT, AND POC IN 3-5 DAYS 2)ASSIST NEEDED
--- NOTE | 2017-06-16 18:59 | NUR ---
PATIENT HAS HAD AN UNEVENTFUL DAY, IV ANTIBIOTICS WERE DC'D AND PO STARTED.
--- NOTE | 2017-06-17 05:06 | NUR ---
Pt a/o, occasionally forgetful. turned self in bed all noc. no needs all noc. slept all noc. vss on ra, afebrile. con't on po abx. plan: waiting for placement.
[2017-06-17 08:10] LABS: ALBUMIN 3.5 gm/dL (3.5-5.0); ANION GAP 15.5 (10.0-19.0); CALCIUM 8.7 mg/dL (8.5-10.5); MAGNESIUM 2.4 mg/dL (1.8-2.6); PHOSPHORUS 5.1 mg/dL (2.5-4.9); POTASSIUM 4.5 mMol/L (3.7-5.1)
[2017-06-17 08:13] LABS: BASOPHIL % 0.4 %; EOSINOPHIL # 0.3 K/uL (0.0-0.5); EOSINOPHIL % 2.9 %; HEMATOCRIT 32.6 % (33.0-50.0); HEMOGLOBIN 10.2 g/dL (11.0-16.0); IMMATURE GRANULOCYTE # 0.1 K/uL (0.0-0.3); IMMATURE GRANULOCYTE % 0.8 %; LYMPHOCYTE # 1.7 K/uL (0.8-4.0); LYMPHOCYTE % 18.3 %; MCH 29.5 pg (27.0-34.0); MCHC 31.3 gm/dL (32.0-36.5); MCV 94.2 fl (83.0-98.0); MONOCYTE % 11.2 %; NEUTROPHIL # (ANC) 6.1 K/uL (1.4-9.0); NEUTROPHIL % 66.4 %; NRBC % 0 /100WBC (0-0.00); PLATELET COUNT 452 K/uL (150-450); RBC 3.46 M/uL (3.50-5.50); RDW-CV 15.6 % (11.9-14.6); WBC 9.2 K/uL (4.0-11.0)
[2017-06-17 08:14] LABS: CREATININE 4.2 mg/dL (0.6-1.3)
--- NOTE | 2017-06-17 17:52 | NUR ---
PATIENT REFUSED TO GET OUT OF BED TODAY. NOT MOTIVATED TO DO MANY THINGS FOR SELF TODAY.
--- NOTE | 2017-06-18 04:32 | NUR ---
Significant Event:Patient very depressed and not talkative. Will answer questions with few words and wants to be left alone. VSS on RA. BG at 2100-204 patient received 4 units and 14 of Levemir, checked BG at 0100- 110. Denied pain all shift. Repositions self often in bed. BM x1. Follow up:Dialysis today. MSU status. Pending placement ? R)Camacho GAL[facility] to see today.
[2017-06-18 07:40] LABS: ALBUMIN 3.2 gm/dL (3.5-5.0); ANION GAP 17.8 (10.0-19.0); CALCIUM 8.5 mg/dL (8.5-10.5); CREATININE 5.4 mg/dL (0.6-1.3); PHOSPHORUS 6.2 mg/dL (2.5-4.9); POTASSIUM 4.8 mMol/L (3.7-5.1)
--- NOTE | 2017-06-18 11:57 | NUR ---
1025 Came by to see Connor but he was down in dialysis. Will come by again later this afternoon and see when MDs are thinking dismissal might be or if there is anymore talk of a Right AKA.
--- NOTE | 2017-06-18 16:29 | NUR ---
Significant event: A&Ox3. VSS. R)lung slightly coarse, encouraged good pulmonary hygiene. [place] two tabs given twice this shift, last at 1400. Stump stapled, edges approximated. R) foot has eschar tissue, betadine applied. 1+ pulses to R) foot. Worked with PT. Had 2L off during dialysis. Low blood sugar this AM, long acting insulin decreased. Follow Up: Continue current POC
--- NOTE | 2017-06-19 05:22 | NUR ---
Significant Event: Patient alert and oriented x3. SBP 80s-90s with beginning of shift. 500ml fluid bolus given per Dr. Serra. BP stable since. All other vitals stable. On RA. Patient felt dizzy at 0430. Blood sugar in the 90s. [place] juice given. Stump stapled, edges approximated. Sleeve remains on. Right foot has eschar tissue. Turned Q2. Calm and cooperative with all cares. Follow up: Will continue to monitor per plan of care.
[2017-06-19 05:25] LABS: ALBUMIN 3.6 gm/dL (3.5-5.0); ANION GAP 12.4 (10.0-19.0); CALCIUM 8.5 mg/dL (8.5-10.5); CREATININE 3.3 mg/dL (0.6-1.3); PHOSPHORUS 4.7 mg/dL (2.5-4.9); POTASSIUM 4.4 mMol/L (3.7-5.1)
--- NOTE | 2017-06-19 10:40 | NUR ---
A - NUTRITION F/U. NA+ 134, GLU 100, BUN/AIR COMPRESSOR ENGINEER 24/3.3, ALB 3.6. HX OF L) AKA. DIALYSIS M-W-F. DIET: CONSISTENT CARBOHYDRATE W/ HB EGG BID. INTAKE VARIES 25-100% W/ AVERAGE OF 60%. TRIED TO TOUCH BASE W/ PT THIS AM BUT SLEEPING SOUNDLY. D - AT RISK W/ INCREASED NUTRIENT NEEDS R/T ESRD AEB HEMODIALYISIS. I - GOAL: CONTINUED > 50% AVERAGE INTAKE. M/E - POSSIBLE DC SOON. WILL F/U ON INTAKE IN 3-5 DAYS IF STILL HERE.
--- NOTE | 2017-06-19 13:04 | NUR ---
Call to follow up with the referral to [facility] that NOBLE Mckinney had sent last week. I talked with Sherrie as Edilia was out of the office. Sherrie states that they can not accept at this time. I stopped in and talked with Connor and Connor OLMEDO, updated them on all the facilities that I have tried to get Connor to and why he can't go to them. I shared with them at this point, my only option was really for him to go back to [facility] in [place]. Son states that this is fine and they will just have to make it work as there really isn't anything else that he can do. I let him know that I was going to fax Denise at [facility] an udpdate today and call her and see if/when they could take Connor back. Son was fine with this, says he will updated all of his other siblings so they are aware as well. No other questions, needs or concerns from Connor or Connor Malone standpoint. I left a VM with Denise at the [facility], let her know that I was faxing over an update to them so they could review it and then we would see about getting him back to them as soon as tomorrow if they could take him. No call back from her at this time. Udpdate was faxed. I also called down to our dialysis unit, talked with Tanja to who confirms that Connor still has his chair time in [place] and they have been updated that Connor might be coming back to them as soon as Sunday. Let Tanja know once I heard back from [facility] on discharge date and time I would let her know so they could plan accordinly. She was fine with this plan. IF he were to go tomorrow to [facility], he wouldn't have dialysis here, he would just skip it and then go to [facility] on for he regular chair time. CM to continue to follow and assist.
--- NOTE | 2017-06-19 16:56 | NUR ---
Significant event: A&Ox3. VSS on RA. Slightly coarse bilateral lower lobes, pt has occasional nonproductive cough. Stump stapled, edges approximated, sleeve on. Right foot has eschar on top, toes, and heel. Betadine applied. Repositioned q2h. PT and OT got pt up to chair this morning. 1 large incontinent BM today, no UOP. No complaints of pain today Follow up: [facility]
--- NOTE | 2017-06-20 03:22 | NUR ---
Pt A&Ox4, forgetful at times, flat affect. VSS on RA, SR. AKA incision stapled, sleeve and stump protector in place. Turn q2hrs as tolerated by pt. Cooperative with cares. Plan is for [facility] in [place] today.
--- NOTE | 2017-06-20 11:18 | NUR ---
Call from Denise at [facility], they can take Connor today as soon as he is done with dialysis. I talked with his RN Tana who says that he is going to run for 3 hours of dialysis and will be done around 1230. I shared this with Denise who is working on a [place] van to come and pick him up. ID Screen is complete and was placed on his chart to be put in his packet when it gets back up to the floor after dialysis. Orders were printed and placed on the chart for to do. I phoned , notified him that SNF would accept today, he says he will be around to do orders either while Connor is in dialysis or when he gets back up to the floor. RN to RN number was given to Tana to call in report before Connor dismisses. Called Denise back to confirm [facility] van pickup time, she says she is still waiting to hear back from her van staff and then will call me back. CM to continue to follow and assist.
--- NOTE | 2017-06-20 16:02 | NUR ---
Patient is alert and oriented. Can be forgetful at times. Dialysis today from 0900 to 1300 no fluids removed. Several sores to right foot/heel/toes. Redness on buttocks, blanchable. Left above the knee amputation. Que removed today and steri strips placed. VSS on RA. Right arm fistula has good bruit and thrill. Poor appetite. Patient has a very flat affect, but has been calm and cooperative with cares. To be transfered to [facility] in [place].
--- NOTE | 2017-06-20 17:26 | NUR ---
Significant Event: Patient is alert and oriented. VSS on room air. Left above the knee amputation. Que removed and steri strips applied. Sores remain to the right foot. No complaints of pain. Patient transferred to [facility] in [place]. Discharge to [facility] advanced practice nurse psychotherapist per wheelchair accompanied by personnel security assistant. screw driver operator did take our wheelchair and stated that he would bring it back. Nurse to nurse report called to Juhi at [facility].
== END 2017-06-20 16:25 | DRG 853 ==
LOC: GICU 17:00 → GPCU 17:00
PROVIDERS: Hospitalist; Internal Medicine; Internal Medicine Nephrology; Nurse Practitioner; Surgery Vascular Surgery; ADMIT Family Medicine
PROC: 0Y6D0Z1 Detachment at Left Upper Leg, High, Open Approach (ICD-10-PCS; principal; 2017-06-05)
DX: A41.9 Sepsis, unspecified organism (principal); G93.40 Encephalopathy, unspecified; E44.0 Moderate protein-calorie malnutrition; E11.52 Type 2 diabetes mellitus with diabetic peripheral angiopathy with gangrene; I13.11 Hypertensive heart and chronic kidney disease without heart failure, with stage 5 chronic kidney disease, or end stage renal disease; E11.21 Type 2 diabetes mellitus with diabetic nephropathy; D62 Acute posthemorrhagic anemia; D63.8 Anemia in other chronic diseases classified elsewhere; I99.8 Other disorder of circulatory system; M62.261 Nontraumatic ischemic infarction of muscle, right lower leg; Z99.2 Dependence on renal dialysis; Z86.73 Personal history of transient ischemic attack (TIA), and cerebral infarction without residual deficits; Z79.82 Long term (current) use of aspirin; Z79.4 Long term (current) use of insulin; Z87.891 Personal history of nicotine dependence
CPT/HCPCS: C1751; J0690; J1170; J1644; J2001; J2020; J2270; J2405; J2543; J7030; J7050; J7120; P9016; P9047; Q4081

== ENCOUNTER 2017-06-28 13:33 | Inpatient (IN) | payer MEDICARE, OTHER ==
[~2017-06-28] VITALS: Ht 152.4 cm; Wt 53.0 kg
--- NOTE | ~2017-06-28 | DS ---
PATIENT'S NAME: NICOLE WIN [facility] AGE: 82 Y [address] 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 SECONDARY DIAGNOSES: 1. Essential hypertension. 2. Diabetes mellitus type 2. 3. Depression. 4. End-stage renal disease, on hemodialysis. 5. Ngysi-xj-eznubze kidney disease. 6. Moderate protein-calorie malnutrition. 7. Physical deconditioning. 8. Dementia. PROCEDURES: Right tivjq-zye-uivv amputation with Dr. Sauer on 06/29/2017. CONSULTATIONS: 1. Hospitalist, Dr. Sanchez for medical management. 2. Nephrology for hemodialysis, Dr. Teddy Stewart. 3. Palliative Care, Elif Alicia APRN. 4. Rehab consultation Dr. Ocampo. HOSPITAL COURSE: This is an 82-year-old male admitted to [facility] after presenting to the emergency room with worsening of right gangrenous foot with cellulitis changes. The patient with known severe peripheral vascular disease. He underwent left dzpmw-pkm-gpbv amputation on 06/05/2017 for gangrenous ulcer and was discharged from the hospital on June 20. At that time, his right foot ulcer was stable and the patient and family did not wish to pursue right uauwf-dol-jnge amputation. The patient's family and halfway contacted the [facility] on 06/28/2017 with concerns of increasing confusion and worsening right ulcer appearance. The patient was brought to the emergency room at [facility] for evaluation. See the patient history and physical for full patient details. He was assessed by Dr. Sauer and hospitalist in the emergency room. The patient was with a long-standing ischemic history with nonreconstructible vascular disease. He was continued on aspirin, Plavix, and statin. The patient was admitted to Progressive Care Unit on vancomycin and Zosyn. His blood cultures were obtained prior to antibiotic initiation. The patient was kept n.p.o. for right upotl-mum-vutd amputation the next morning. Nephrology was consulted for end-stage renal disease requiring hemodialysis. CT of head PATIENT'S NAME: NICOLE WIN [facility] AGE: 82 Y [address] ROOM: [id number] [place], [place] [address] LOCATION: GPCU ADMIT DATE: 06/28/2017 Discharge Summary DISCHARGE DATE: 07/06/2017 FAMILY PHYSICIAN: Mykel Robert MD ATTENDING PHYSICIAN: Stephen Sauer was ordered for acute encephalopathy to rule out head bleed. Results stable ventriculomegaly, probably compensatory dilation from atrophy. Communicating hydrocephalus, less likely, correlate clinically. There was no hemorrhage, mass effect, or evidence of acute infarcts. The patient's physical therapy and occupational therapy were continued on admission. Sliding scale insulin was initiated. The patient did receive a 1 time dose of p.o. and IV potassium for hypokalemia. The morning of surgery, the patient did experience a hypoglycemic incident, which was stabilized. The patient went to surgery for xwimf-zok-aapv amputation on the right-side. The patient tolerated the procedure well and after recovery was returned to PCU for monitoring of telemetry, vitals, lab, surgical site, pain management, medication administration, and nursing assistance. After surgery, the patient was placed on bedrest for 24 hours and his diet was advanced as tolerated. Postoperatively, he had some difficulties with elevated blood pressures and pain control. Hydralazine 10 mg IV ordered every 4 hours for systolic blood pressure greater than 170. The patient's night dose of Levemir was decreased due to episode of hypoglycemia. On postop day #1, the patient received dialysis. His dressing to his right leg was found to be clean, dry, and intact. The patient with cough present. Chest x-ray was ordered and found to be a normal portable chest x-ray. Care Management was onboard for family and did not want the patient to return to [facility]. The patient found to be tired and not eating or drinking much. Also, not very talkative. On postop day #2, the patient resumed physical therapy and occupational therapy. Zosyn and vancomycin were discontinued. On postop day #3, the patient had another episode of hypoglycemia requiring IV push dextrose. Once again, his Levemir was decreased, a night snack was ordered, and the patient was not to receive bedtime sliding scale insulin. Mucinex started for productive cough and Speech Therapy consulted. Palliative Care also consulted to discuss goals, fears, concerns, losses, support system, and recent depression. Dressing was removed to right stump, which was found to be clean and intact without hematoma or erythema. There was also no drainage. The patient began daily dressing changes and a stump fuels sales representative and AmpuShield were ordered. On postop day #4, Dr. Ocampo consulted for possible GIRP placement. He encouraged the patient to lie on his stomach regularly and continue physical therapy and occupational therapy and it was determined that the patient was not an acute rehab candidate at that time. Other many days in the hospital were spent working on placement. The patient continued to have his Levemir adjusted. He was started on Zoloft 50 mg for depression. Speech Therapy performed a modified barium swallow study and there was no aspiration of solid materials observed during modified barium swallow study. They recommended a regular diet, double swallow or more chin tucks, meals whole one at a time with thins. The patient to be upright for all p.o. intake, small bites and sips, and alternate drinks after 2 to 3 bites. On 07/06/2017, the patient was found in a stable condition and also placement was resolved. The patient was discharged to [facility]. PATIENT'S NAME: NICOLE WIN [facility] AGE: 82 Y [address] ROOM: [address] [address] LOCATION: GPCU ADMIT DATE: 06/28/2017 Discharge Summary DISCHARGE DATE: 07/06/2017 FAMILY PHYSICIAN: Mykel Robert MD ATTENDING PHYSICIAN: Stephen Sauer DISCHARGE ORDERS: The patient is to be discharged to the halfway on a diabetic diet. He is to have an evening snack. Occupational therapy, physical therapy, and speech therapy to be continued. The patient may have oxygen as needed to keep sats greater than 90. retirement may apply dry dressing daily to right AKA if draining. Que are to remain intact until followup appointment. The patient is also to use his stump fuels sales representative and AmpuShield. He is to follow up with Ct Bell, Nurse Practitioner in 2 weeks. He is to continue with dialysis per Nephrology recommendations. The halfway is to report any signs or symptoms of infection including redness, swelling, fevers, chills, or drainage. DISCHARGE MEDICATIONS: 1. Norvasc 10 mg p.o. daily. 2. Aspirin 81 mg p.o. daily. 3. Lipitor 80 mg p.o. daily. 4. B complex 1 tab p.o. daily. 5. Plavix 75 mg p.o. daily. 6. Guaifenesin 1200 mg p.o. twice daily. 7. NovoLog subcutaneously 3 times daily before meals per sliding scale at 7:11 and 1700. 8. Levemir 10 units subcutaneously every night at bedtime. 9. Glucagon as needed hypoglycemia 1 mg subcu. 10. Cozaar 50 mg p.o. twice daily. 11. Protonix 40 mg p.o. daily. 12. Zoloft 50 mg p.o. daily. 13. Tylenol 650 mg p.o. every 4 hours as needed for pain. 14. [place] 1 tab every 4 hours as needed for pain. 15. Dulcolax 10 mg rectally everyday as needed p.r.n. constipation. 16. Dextrose 16 g p.o. as needed hypoglycemia. 17. Benadryl 25 mg p.o. at bedtime as needed insomnia. 18. Colace 100 mg p.o. twice daily as needed constipation. 19. Milk of magnesia 30 mL p.o. everyday as needed constipation. 20. Nitrostat 0.4 mg sublingual as needed angina. DISPOSITION: The patient is to be discharged to halfway in a stable condition. They are to follow discharge orders as prescribed. Education about discharge including wound care, medications, prescriptions, diet, activity, and followup appointments given to the patient and the halfway. The patient verbalized understanding of the plan and had no further questions or concerns. He is to follow discharge orders as prescribed. PATIENT'S NAME: NICOLE WIN [facility] AGE: 82 Y [address] ROOM: [id number] [place], [place] [address] [facility] AD[facility] DATE: 06/28/2017 Discharge Summary DISCHARGE DATE: 07/06/2017 FAMILY PHYSICIAN: Mykel Robert MD ATTENDING PHYSICIAN: Stephen Sauer APRN FOR STEPHEN SAUER MD TO/nubial /[id number] d: 07/14/17 0545 t: 07/20/17 1015, DISCHARGE SUMMARY
--- NOTE | ~2017-06-28 | CON ---
PATIENT'S NAME: NICOLE WIN [facility] AGE: 82 Y [address] ROOM: [place] [address] LOCATION: GPCU ADMIT DATE: 06/28/2017 Consultation DISCHARGE DATE: FAMILY PHYSICIAN: Mykel Robert MD ATTENDING PHYSICIAN: VINNY HUTCHINSON REFERRING PHYSICIAN: Oziel De Oliveira Consult for FINESSE Jimenez. HISTORY OF PRESENT ILLNESS: This 82-year-old gentleman is referred for rehab evaluation, admitted on 06/28/2017. 1. 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 2. He has peripheral vascular disease. 3. Diabetes type 2. 4. Hypertension. 5. COPD with tobacco use. 6. ESRD. 7. Status post AV fistula and on dialysis with chronic renal failure. 8. He is status post coronary artery disease and has history also of diabetes type 2 and CA breast, stable. PHYSICAL EXAMINATION: GENERAL: At the present time, he is an alert, oriented, and cooperative. VITAL SIGNS: Blood pressure 139/62, temperature 98.3, pulse 84, and respiratory rate 14. He is 5 feet 7 inches and weighs 52.6 kg. NEUROLOGIC: He can comprehend, express himself. His speech is clear. However, he is demented and can be very forgetful. Follows instructions well. Can swallow without difficulty. Cranial nerves 2 through 12 are within normal limits. EXTREMITIES: At the present time, he can move bilateral upper extremity fairly well. Bilateral lower extremity: He can move them at the hip joint fairly well also. PAST MEDICAL HISTORY: 1. History of diabetes, insulin dependent. 2. End-stage renal disease and on dialysis. 3. Hypertension. 4. AV fistula. 5. Status post stenting x2. MEDICATIONS: He is on the following medications: 1. Norvasc. 2. Mucinex. PATIENT'S NAME: NICOLE WIN [facility] AGE: 82 Y [address] ROOM: [place] [address] LOCATION: GPCU ADMIT DATE: 06/28/2017 Consultation DISCHARGE DATE: FAMILY PHYSICIAN: Mykel Robert MD ATTENDING PHYSICIAN: VINNY HUTCHINSON 3. Insulin Levemir. 4. Insulin aspart, mild scale. 5. Cozaar. 6. Epogen. 7. Albumin human. 8. Heparin. 9. Apresoline. 10. B complex. 11. NaCl 0.9%. 12. MOM. 13. Dulcolax. 14. Benadryl. 15. Zofran. 16. Tylenol. 17. Colace. 18. [place]. 19. Morphine sulfate. 20. Nitroglycerin. 21. Plavix. 22. Aspirin. 23. Protonix. 24. Lipitor. 25. Glucagon. 26. Glucose. 27. Dextrose. 28. Oxycodone. ASSESSMENT AND PLAN: We will continue him on PT/OT which has been already initiated. I would advise him to lie on his stomach at least twice a day for 10-15 minutes to prevent hip contracture. I will plan to take him to rehab for intensive rehabilitation for about 10-14 days aiming to discharge him at modified independence. I understand he lives now in a halfway. We will try to see how we can arrange that admission. Thank you for this referral. I will follow alongside with you. MD FRANCISCA ZAVALAS/nubial PATIENT'S NAME: NICOLE WIN [facility] AGE: 82 Y [address] ROOM: [place] [address] LOCATION: GPCU ADMIT DATE: 06/28/2017 Consultation DISCHARGE DATE: FAMILY PHYSICIAN: Mykel Robert MD ATTENDING PHYSICIAN: VINNY HUTCHINSON /[id number] d: 07/03/17 1755 t: 07/04/17 0716, CONSULTATION REPORT
--- NOTE | ~2017-06-28 | CON ---
PATIENT'S NAME: NICOLE WIN [facility] AGE: 82 Y [address] ROOM: [address] [place] [id number] [facility] AD[facility] DATE: 06/28/2017 Consultation DISCHARGE DATE: FAMILY PHYSICIAN: Mykel Robert MD ATTENDING PHYSICIAN: VINNY SAUER Date: 07/02/2017 PALLIATIVE CARE CONSULTATION LOCATION: [place] [address]. REFERRING PHYSICIAN: Arabella Hammer MD. This is a palliative care referral for goals of care. HISTORY OF PRESENT ILLNESS: This 82-year-old male was admitted 06/28/2017 with a right gangrenous foot with cellulitis. He has a known history of peripheral vascular disease with diabetic foot and gangrenous changes status post left yaani-btj-qedc amputation and critical ischemia in right lower extremity, peripheral artery disease, end-stage renal disease, diabetes mellitus type 2. The patient had been living in the [facility] and was getting dialysis on Tuesdays, , and Saturdays. He began to have worsening right gangrenous foot with cellulitis changes and was admitted to the hospital on June 05, 2017 and discharged on 06/20/2017. He was under the care of Dr. Sauer for above the knee amputation. On 06/29/2017, had a right above-the- knee amputation. The patient currently is tolerating dialysis well, seems down, says few words. Denies any pain or discomfort after taking pain medication. Pain medication is effective for pain and right stump. Appetite is good. No nausea or vomiting. Sleeping a lot. Family states the patient is a man of few words and does not talk a lot, has lost weight over the last year or two. On last admission on June 04, 2017, the patient weighed 145 pounds with a BMI of 22.7. On this admission June, the patient's weight is 118 with a BMI of 18.5. PAST MEDICAL HISTORY: End-stage renal disease, mild dementia, short-term memory loss, COPD, peripheral vascular disease severe, history of CVA, hypertension, tobaccoism, diabetes mellitus, type 2, peripheral artery disease. ALLERGIES: NO KNOWN ALLERGIES. CURRENT MEDICATIONS: PATIENT'S NAME: NICOLE WIN [facility] AGE: 82 Y [address] [address] LOCATION: GPCU ADMIT DATE: 06/28/2017 Consultation DISCHARGE DATE: FAMILY PHYSICIAN: Mykel Robert MD ATTENDING PHYSICIAN: VINNY SAUER 1. Heparin 1000 units with dialysis. 2. Aspirin 81 mg daily. 3. Cozaar 50 mg daily. 4. Mucinex 1200 mg b.i.d. 5. Lipitor 80 mg at h.s. 6. Norvasc 5 mg daily. 7. Plavix 75 mg daily. 8. Protonix 40 mg daily. 9. Z-Bec one tab daily. 10. Levemir 8 units subcu at h.s. 11. NovoLog mild sliding scale. 12. Apresoline 10 mg IV every 4 hours p.r.n. elevated blood pressure. 13. Morphine 2 mg IV every 5 minutes p.r.n. 14. Zofran 4 mg IV every 6 hours p.r.n. nausea. 15. Benadryl 25 mg p.o. at h.s. 16. Colace 100 mg b.i.d. 17. Milk of magnesia 30 mL p.o. daily p.r.n. constipation. 18. [place] 5/325 mg two tablets every 4 hours p.r.n. 19. Percocet 5/325 mg 1 tab every 8 hours p.r.n. pain. 20. Tylenol 650 mg p.o. every 4 hours p.r.n. pain or fever. 21. Dulcolax 10 mg suppository per rectum p.r.n. constipation. 22. Nitrostat 0.4 mg sublingual p.r.n. chest pain. SURGICAL HISTORY: Right and left above-knee amputation, AV fistula placement, multiple stent placement in lower extremities, multiple foot surgery. FAMILY HISTORY: Father had diabetes, coronary artery disease. Mother history of breast cancer. Has two brothers, one sister. One brother lives out of state, one brother , and one sister lives in [place]. SOCIAL HISTORY: in September of 2016, was on hospice. Occupation was a printer, is retired. Tobaccoism since age of 13, continues to smoke. Alcohol use occasional before longterm. REVIEW OF SYSTEMS: A complete review of systems was done and is negative except as mentioned in HPI. PSYCH: Has been more down per children since had in September 2016, was started on dialysis in September 2016. The patient had health declined in December 2016, was started on dialysis and continued to decline with two recent leg amputations, decreased interest in activities, wanting to sleep. PATIENT'S NAME: NICOLE WIN [facility] AGE: 82 Y [address] ROOM: [place] [address] [facility] AD[facility] DATE: 06/28/2017 Consultation DISCHARGE DATE: FAMILY PHYSICIAN: Mykel Robert MD ATTENDING PHYSICIAN: VINNY SAUER PHYSICAL EXAMINATION: GENERAL: This is an 82-year-old frail male in no acute distress. VITAL SIGNS: Temperature 98.2, pulse 84, respirations 16, blood pressure 168/74, and O2 saturation is 95%. He is 5 feet 7 inches, weight 118 pounds, with a BMI of 18.5. GENERAL: Alert and oriented to name and children, not time. SKIN: Warm and dry. Color pale. Left stump well healed. Right stump is wrapped with Sukhdev wrap. HEENT: Normocephalic and atraumatic. Sclerae nonicteric. Conjunctivae are pale and pink. Mouth is pink and moist without exudate. LYMPH: No cervical adenopathy or thyromegaly. RESPIRATORY: Clear to auscultation bilaterally. Breath sounds even and regular throughout. CARDIAC: S1, S2 without murmurs or bruits. No edema in extremities. ABDOMEN: Soft, nontender. Positive bowel tones. No hepatosplenomegaly. NEURO: Grossly intact. PSYCH: Some short-term memory loss. MUSCULOSKELETAL: Appropriate range of motion. Decreased muscle mass in extremities. EXTREMITIES: No cyanosis or deformities. PALLIATIVE PERFORMANCE SCALE: 40% mainly in bed, unable to do most activity. Total Care: Normal intake. Conscious Level: Drowsy, sleeping more than usual. IMPRESSION: Weakness, fatigue, depression, and pain in right stump. PLAN: 1. Met with the patient and children. Discussed overall chronic conditions. Medical power of commercial attorney is Darlene Stephenson and son, Nicole Win . Discussed chronic conditions, end-stage renal disease with dialysis, mild dementia with short-term memory loss, COPD, and severe peripheral vascular disease with two recent amputations. Discussed overall losses over the last two years and the patient is declining, lost his , started on dialysis, possible limbs. The patient is wanting to go home, home is not an option due to both children working and patient not able to take care of himself and needing to go back and forth for dialysis. The patient dislikes the half-way that he was living in. Family has talked with Care Management about possible other options of placement and getting dialysis changed, is working with Carmen ATKINSONplanning manager on options. DISCUSSED GOALS OF CARE: PATIENT'S NAME: NICOLE WIN [facility] AGE: 82 Y [address] ROOM: [address] [address] LOCATION: GPCU ADMIT DATE: 06/28/2017 Consultation DISCHARGE DATE: FAMILY PHYSICIAN: Mykel Robert MD ATTENDING PHYSICIAN: VINNY SAUER 1. To try to find a new longterm facility with dialysis placement. 2. Continue aggressive treatments. 3. Get a counselor to discuss his depression, possibly medication to help talk about his feelings and recent losses, they also contacted assurance engineer, Anibal, to see if he will also come up and talk with the patient. His personal assurance engineer is out of town. CODE STATUS AND ADVANCE DIRECTIVE: The patient is a DO NOT RESUSCITATE. A copy of advance directive with medical power of attorneys is on the chart. Discussed fears and concerns. We will try to work on goals of care with the patient when more alert and awake. Total time was 60 minutes with 50 minutes for counseling discussion on goals of care and concerns and education on chronic diseases. Thank you, Dr. Hammer for allowing me to assist this patient and family. BAO MINAYA NP FOR MD DALLIN ANDREW/chris /[id number] d: 07/03/17 1754 t: 07/24/17 1336, CONSULTATION REPORT
--- NOTE | ~2017-06-28 | HP ---
PATIENT'S NAME: NICOLE WIN [facility] AGE: 82 Y [address] ROOM: [id number] [place], [place] [address] LOCATION: [facility] ADMIT DATE: 06/28/2017 History & Physical DISCHARGE DATE: FAMILY PHYSICIAN: Mykel Robert MD ATTENDING PHYSICIAN: VINNY SAUER DATE OF SERVICE: CHIEF COMPLAINT: Right gangrenous foot with cellulitis. HISTORY OF PRESENT ILLNESS: The patient is an 82-year-old gentleman with past medical history of peripheral vascular disease with diabetic foot and gangrenous foot changes, status post amputation of left AKA recently, critical ischemia of right lower extremity, peripheral artery disease, ESRD, and diabetes mellitus type 2, who presents here from [facility] with worsening of right gangrenous foot with cellulitis changes. The patient was recently admitted to our hospital on June 05, 2017 and was discharged on June 20, 2017. During his stay, the patient was admitted for a left diabetic foot with gangrenous change and critical ischemia. The patient was seen by Dr. Sauer and had an AKA. The patient was discharged back to [facility] with dialysis at [place]. During that admission, there was a concern for the right foot critical ischemia of the foot with gangrenous change, and the surgery was offered, however, family and the patient refused to have that procedure done. The patient was discharged to longterm [facility] and was participating in PT and OT. However, for the past 2 days, the patient was noted to be somewhat confused. Of note, the patient has underlying dementia, and his confusion was noted to be worsened. Also, the patient's right foot was noted to swell and have erythematous changes. Family member contacted Dr. Sauer for possible surgical intervention. The patient was transferred to our emergency department for workup. In the emergency department, the patient's foot was noted to swell up and has worsening of necrotic changes. Dr. Sauer has seen the patient in the emergency department and scheduled for possible surgical intervention tomorrow. The patient is alert and oriented x2. Does not know the year. He thinks that he lives with his daughter at [place]. However, the patient is currently staying at a longterm facility. The patient denies any chest pain, shortness of breath, fever, chills, abdominal pain, nausea, vomiting, and diarrhea. These symptoms were not seen by a family member also. MEDICAL HISTORY: ESRD, dementia, COPD, peripheral vascular disease, history of CVA, hypertension, and tobacco use. PATIENT'S NAME: NICOLE WIN [facility] AGE: 82 Y [address] ROOM: [id number] [place], [place] [address] LOCATION: [facility] ADMIT DATE: 06/28/2017 History & Physical DISCHARGE DATE: FAMILY PHYSICIAN: Mykel Robert MD ATTENDING PHYSICIAN: VINNY SAUER PAST SURGICAL HISTORY: Left AKA, AV fistula, multiple stent placement to lower extremity, and multiple foot surgery. FAMILY HISTORY: Dad has diabetes mellitus and coronary artery disease. Also mother has history of breast cancer. SOCIAL HISTORY: The patient smokes. He has been smoking for 7 years. He reports that he has been smoking since he was age 13. Occasional alcohol use, and before his jail he used to work in a [employer] company. MEDICATIONS: Currently been reconciled. REVIEW OF SYSTEMS: All systems have been reviewed and are negative except for what I mentioned in the HPI. PHYSICAL EXAMINATION: VITAL SIGNS: Temperature 98.2, blood pressure 168/74, heart rate of 94, respiratory rate of 18, satting 92% on room air. GENERAL APPEARANCE: The patient appeared cachectic. The patient is alert and awake, in mild distress due to right foot pain. CHEST: Clear to auscultation bilaterally. EYES: Extraocular muscle intact. HEAD: Normocephalic, atraumatic. EARS: No ear discharge. NOSE: No nose discharge. ORAL CAVITY: Moist oral cavity. HEART: Regular rate and rhythm. No murmurs, rubs, or gallops. ABDOMEN: Soft, nontender, and nondistended. Bowel sounds present. SKIN: Warm to touch. PLATFORM ARCHITECT: The patient is alert and oriented x2, not oriented to time. Moves all extremities. EXTREMITIES: Left AKA. Right foot shows 2 gangrenous necrotic ulcers with erythema around them and edema and warm to touch. SKIN: No expressible drainage noted. LABORATORY DATA: Lactate 1, Accu-Chek 235. White blood cell count of 9.2, hemoglobin 9.5, hematocrit 29.9, platelet of 370. BUN of 10, creatinine of 2.1, sodium 135, potassium of 3.1, CO2 of 32, ESR of 95, INR 0.97. Procalcitonin of 0.65. CRP PATIENT'S NAME: NICOLE WIN [facility] AGE: 82 Y [address] ROOM: [id number] [place], [place] [address] LOCATION: [facility] ADMIT DATE: 06/28/2017 History & Physical DISCHARGE DATE: FAMILY PHYSICIAN: Mykel Robert MD ATTENDING PHYSICIAN: VINNY SAUER of 10. IMAGING DATA: Chest x-ray, no acute cardiopulmonary changes. ASSESSMENT AND PLAN: 1. Diabetic gangrenous foot ulcer with cellulitis. The patient with known history of critical ischemia of the right foot, now presenting with diabetic foot with gangrenous changes and cellulitis. We will start the patient on empiric antibiotic of vancomycin and Zosyn. The patient is seen by Dr. Sauer, scheduled for amputation tomorrow. Blood culture has already been taken before antibiotic use. 2. Critical limb ischemia of right foot. Last angiogram done shows multiple disease. The patient is scheduled for a surgical amputation tomorrow. We will continue aspirin, Plavix, and statin. 3. Acute encephalopathy. Etiology most likely secondary to infectious process. However, the patient is on aspirin and Plavix. We will check a CT of head to rule out any head bleed or ischemia. 4. Diabetes mellitus type 2. The patient is on detemir 15 units at night. We will decrease it to 10 units as the patient is going to be n.p.o. after midnight. 5. End-stage renal disease. The patient is on dialysis Sunday, , and Sunday. Discussed case with Dr. De Oliveira to schedule dialysis on Sunday. 6. Hypertension, stable. Continue medication. 7. Dementia, ongoing. 8. Zkhuiofa-ls-larypn protein-calorie malnutrition. 9. Physical deconditioning. PT/OT. Greater than 70 minutes were spent on the patient's care. Greater than 50% of the time was spent on direct patient care. Care was discussed with Dr. Sauer and Dr. De Oliveira. We will admit the patient for possible surgical intervention. Continue antibiotics. Discussed the code status. Code status, DNR. MD DEEDEE JONES/nubial /[id number] D: [id number] T: [id number] HISTORY & PHYSICAL
--- NOTE | ~2017-06-28 | ER ---
PATIENT'S NAME: NICOLE WIN [facility] AGE: 82 Y [address] ROOM: [place] [address] LOCATION: [facility] ADMIT DATE: 06/28/2017 ER/Outpatient Report DISCHARGE DATE: FAMILY PHYSICIAN: Mykel Robert MD ATTENDING PHYSICIAN: VINNY SAUER CHIEF COMPLAINT: Leg issues. HISTORY OF PRESENT ILLNESS: Mr. Win presents to the ER for evaluation prior to hospitalization for right lower extremity pathology. He is a known vasculopath status post left above- knee amputation by Dr. Sauer recently. He has significant ulcer disease on his right lower extremity, which appears to have gotten worse, and is likely infected since recent hospital discharge. Last night, he was slightly confused, but son notes that he is at his normal baseline today which is slightly confused, but last night it was worse. The patient has no specific complaints and otherwise feels well today. PAST MEDICAL HISTORY: Documented on the record and reviewed by me. SOCIAL HISTORY: Documented on the record and reviewed by me. MEDICATIONS: Documented on the record and reviewed by me. ALLERGIES: DOCUMENTED ON THE RECORD AND REVIEWED BY ME. REVIEW OF SYSTEMS: All systems reviewed and negative except as noted in the HPI. PHYSICAL EXAMINATION: VITAL SIGNS: Blood pressure 160/74, pulse 94, respiratory rate 22, temperature 98.2, and SpO2 is 98% on room air. Pain 0/10. GENERAL: Age-appropriate male. No obvious pain or distress. Recumbent on the exam table. NEURO: The patient is awake. GCS is 14. He is confused, but does follow commands. No obvious other abnormalities. HEENT: Normocephalic, atraumatic. Eyes are PERRL. Oropharynx is clear. Slightly dry. NECK: Supple. Trachea is midline. CHEST: Heart has regular rate and rhythm with no murmurs. PATIENT'S NAME: NICOLE WIN [facility] AGE: 82 Y [address] ROOM: [place] [address] LOCATION: [facility] ADMIT DATE: 06/28/2017 ER/Outpatient Report DISCHARGE DATE: FAMILY PHYSICIAN: Mykel Robert MD ATTENDING PHYSICIAN: VINNY SAUER LUNGS: Clear to auscultation bilateral. No rhonchi, wheezes, or rales. ABDOMEN: Soft, nontender, nondistended. No rebound or guarding. BACK: Normal to inspection and palpation. EXTREMITIES: Warm and well perfused except for the left lower extremity which obviously has the above-knee amputation. The stump appears to be healing well; there is no particular erythema, induration, or pain. Right lower extremity is slightly cool and there are some ulcers, particularly on the dorsum of the foot and on the heel. Some scant surrounding erythema and focal warmth. Not particularly painful. SKIN: Otherwise intact grossly. LABORATORY DATA AND X-RAYS: Labs and x-rays were obtained. Lactate is 1. CBC with anemia, hemoglobin of 9.5, otherwise grossly unremarkable. Coags within normal limits. ESR is 95. Procalcitonin 0.65. CRP is 10.6. CMS with a potassium of 3.1, chloride of 94, glucose of 234, BUN of 10, creatinine 2.1, GFR is 29. LFTs grossly unremarkable otherwise. IMPRESSION: 1. Dry gangrene of the right foot. 2. Transient encephalopathy. 3. Dialysis dependent secondary to significant vascular disease. 4. Mild hypokalemia and hypochloremia. 5. Anemia of unclear etiology. EMERGENCY DEPARTMENT COURSE: The patient was seen and evaluated as above. The patient was seen by Dr. Sauer. Hospitalist will admit for further evaluation and treatment, management of medical conditions while Dr. Sauer manages the gangrenous limb. All questions answered, and the patient was admitted. MD ASHLIE FELICIANO/chris /[id number] d: 06/29/17 1010 t: 07/10/17 0621, OUTPATIENT REPORT
--- NOTE | ~2017-06-28 | OR ---
PATIENT'S NAME: NICOLE WIN [facility] AGE: 82 Y [address] ROOM: [address] [address] [facility] ADMIT DATE: 06/28/2017 OR/Procedure Report DISCHARGE DATE: FAMILY PHYSICIAN: Mykel Robert MD ATTENDING PHYSICIAN: STEPHEN HUTCHINSON SURGEON: Stephen Hutchinson MD LINE MOVER: DATE OF PROCEDURE: 06/29/2017 PREOPERATIVE DIAGNOSIS: Ischemia of the right lower extremity. POSTOPERATIVE DIAGNOSIS: Ischemia of the right lower extremity. PROCEDURE: Right above-knee amputation. TECHNICIAN PLANT AND MAINTENANCE: JAKE Kaplan. ANESTHESIA: General. ESTIMATED FLUID LOSS: 100 mL. OPERATIVE FINDINGS: Good clean healthy flaps at closure of above knee stump. DESCRIPTION OF PROCEDURE: The patient was brought to the operating room, placed supine on the operating table, placed under general anesthesia, and prepped and draped in a sterile manner. Preoperative time-out was performed. The patient received preoperative antibiotics. We made a standard fishmouth incision on the above-knee amputation site, we used Bovie cautery to transect all the muscles and soft tissues. We then identified the neurovascular bundles which were suture ligated separately including the superficial femoral vein, the superficial femoral artery, and the sciatic nerve. We then transected the bone using a reticulating saw. We copiously irrigated the wound. We then reapproximated anterior and posterior flaps using 2-0 Vicryl and the skin was closed with von. The patient tolerated the procedure well and transferred to recovery room and to the floor. STEPHEN HUTCHINSON MD FKM/modl /[id number] d: 06/29/171611 t: 07/01/17 1629, OPERATIVE SUMMARY
--- NOTE | ~2017-06-28 | CON ---
PATIENT'S NAME: NICOLE WIN [facility] AGE: 82 Y [address] ROOM: [address] [place], [place] [address] LOCATION: [facility]U ADMIT DATE: 06/28/2017 Consultation DISCHARGE DATE: FAMILY PHYSICIAN: Mykel Robert MD ATTENDING PHYSICIAN: STEPHEN SAUER DATE OF CONSULTATION: 06/29/2017 REFERRING PHYSICIAN: Oziel De Oliveira REFERRING PHYSICIAN: Stephen Sauer M.D. REASON FOR CONSULTATION: End-stage kidney disease, requiring hemodialysis therapy. HISTORY OF PRESENT ILLNESS: This is an 82-year-old male patient who is known to our Nephrology Service from multiple previous admissions, admitted to our hospital again from the ER with peripheral vascular disease and gangrene of the right lower extremity, requiring right AKA. The patient has received AKA today. The patient generally undergoes dialysis at [facility] and follows with Dr. Corona. The patient's last dialysis was yesterday. Generally undergoes dialysis as per Sunday, , and Sunday schedule. Currently, fluid status and volume status and blood pressure are within the acceptable range. Complains of significant pain in the operative side, undergoing postoperative management as per the primary team. Plan for dialysis as per outpatient dialysis schedule on Sunday. He denied any significant chest pain, shortness of breath, orthopnea, or PND. No nausea, vomiting, or diarrhea. Notably, the patient has recently been here at [facility] for left AKA, however, the right side was still okay with small gangrenous spot, but the arterial supply was intact. The patient and family member wanted to monitor with conservative management, however, the patient developed dry gangrene of the right foot and the Vascular Surgery team was planning for right AKA after the patient's admission, who underwent AKA today, this morning. PAST MEDICAL HISTORY: 1. End-stage renal disease, on hemodialysis on Sunday, , and Sunday schedule. 2. Insulin-dependent diabetes. 3. Peripheral vascular disease. 4. Hypertension. 5. High-risk medications. PAST SURGICAL HISTORY: AV fistula placement, aortogram with peripheral runoff, resection of the renal stone, left kidney with small tumor removal, angiogram with revascularization of 2 stents, and left third and fourth toe amputation. ALLERGIES: NO KNOWN DRUG ALLERGIES. MEDICATIONS: As per the chart. PATIENT'S NAME: NICOLE WIN [facility] AGE: 82 Y [address] ROOM: [address] [place] [address] LOCATION: GPCU ADMIT DATE: 06/28/2017 Consultation DISCHARGE DATE: FAMILY PHYSICIAN: Mykel Robert MD ATTENDING PHYSICIAN: STEPHEN SAUER SOCIAL HISTORY: Denied current smoking, drinking, or illicit drug use. Has a remote history of smoking for almost 40 years with a pack per day. He has been for the past 2 years. FAMILY HISTORY: Reviewed and noncontributory. No history of renal disease or dialysis. REVIEW OF SYSTEMS: GENERAL: No fever. No chills or rigor. HEENT: No sore throat. No sinus congestion. CVS: No chest pain. No exertional shortness of breath. No leg swelling. RESPIRATORY: No shortness of breath. No cough. No wheezing. GENITOURINARY: No pain with urination. No increased frequency. No nocturia. GASTROINTESTINAL: No abdominal pain. No abdominal distention. No nausea or vomiting. NEUROLOGIC: No weakness. No seizures. SKIN: No rash. No itching. ALLERGIES: No seasonal allergy. No hayfever. ENDOCRINE: No heat intolerance. No cold intolerance. PSYCHIATRIC: No sadness. No crying spells. No history of panic attack. LABORATORY DATA: Lactate 1. Blood sugar 213. CBC: WBC 10.2, hemoglobin 9.8, and platelets 342. Chemistry: Serum sodium 140, potassium 4.7, chloride 102, bicarbonate 27, BUN 22, creatinine 3.4, glucose 158, calcium 8.1, total protein 7.5, albumin 3, ESR 95, INR 0.97, PTT 32, and CRP 10.6. PHYSICAL EXAMINATION: VITAL SIGNS: Blood pressure 196/81, pulse 83, respiratory rate 20, saturation 96% to 98% on room air, and temperature 98 degrees Fahrenheit. GENERAL: Not in apparent distress. HEAD: Moist mucous membranes. Bilateral PERRLA, EOMI. NECK: No JVD, thyromegaly or lymphadenopathy. CVS: S1 and S2 normal, regular rate and rhythm. No murmur, rub, gallop. CHEST: Bilateral air entry equal. No wheeze or rales. ABDOMEN: Soft, nontender, nondistended. Bowel sounds present. EXTREMITIES: No cyanosis, clubbing, or jaundice. Right AKA. Left AKA. MUSCULOSKELETAL: No limitation of range of motion. SKIN: No pallor, cyanosis, icterus. SHOP TECHNICIAN: Alert and oriented x3. No gross findings.PATIENT'S NAME: NICOLE WIN [facility] AGE: 82 Y [address] ROOM: [place] [address] LOCATION: GPCU ADMIT DATE: 06/28/2017 Consultation DISCHARGE DATE: FAMILY PHYSICIAN: Mykel Robert MD ATTENDING PHYSICIAN: STEPHEN SAUER ASSESSMENT AND PLAN: 1. End-stage renal disease on in-center hemodialysis via the right upper arm arteriovenous fistula, undergoes dialysis at [facility] as per Sunday, , and Sunday schedule. Last dialysis was yesterday. The patient's volume status is well controlled. We will plan to continue dialysis as per the outpatient schedule on Sunday. 2. Peripheral vascular disease with gangrene of the right foot. The patient already had left above knee amputation, but the family wanted to continue conservative management, but after development of the dry gangrene of the right foot, the patient presented to the ER yesterday for right above knee amputation. The patient underwent right above knee amputation today and now he is complaining of little bit of pain on the stump side and blood pressure is higher because of the pain. We will continue to monitor the blood pressure closely overnight and plan to dialyze tomorrow morning. 3. Hypertension. Suboptimally controlled. Possibly secondary to pain. We will continue to monitor and we will dialyze tomorrow. I just need to adjust his dry weight as he has loss of foot. 4. Diabetes mellitus, on sliding scale insulin. Further management as per the primary team. Thank you for allowing me to participate in this patient's care. We will closely monitor the patient's progress along with you. ANTONIETA HOGAN MD /modl /[id number] d: 06/29/17 2253 t: 07/03/17 1129, CONSULTATION REPORT
[~2017-06-28 13:33] MED LIST changes: +ASPIRIN LO-DOSE81 MG PO; +COLACE100 MG PO; +GLUCAGON 1 MG PE1 MG SUB-Q; +GLUCOSE4 GM PO; +NOVOLOG FL100 UNIT/1 SUB-Q; +PROTONIX40 MG PO; +TYLENOL325 MG PO
[2017-06-28 15:04] LABS: BASOPHIL % 0.4 %; EOSINOPHIL # 0.2 K/uL (0.0-0.5); EOSINOPHIL % 1.9 %; HEMATOCRIT 29.9 % (33.0-50.0); HEMOGLOBIN 9.5 g/dL (11.0-16.0); IMMATURE GRANULOCYTE % 0.3 %; LYMPHOCYTE # 1.5 K/uL (0.8-4.0); LYMPHOCYTE % 16.2 %; MCH 29.6 pg (27.0-34.0); MCHC 31.8 gm/dL (32.0-36.5); MCV 93.1 fl (83.0-98.0); MONOCYTE # 0.9 K/uL (0.0-1.0); MONOCYTE % 9.9 %; MPV 8.9 fl (9.4-12.4); NEUTROPHIL # (ANC) 6.5 K/uL (1.4-9.0); NEUTROPHIL % 71.3 %; NRBC % 0 /100WBC (0-0.00); PLATELET COUNT 370 K/uL (150-450); RBC 3.21 M/uL (3.50-5.50); WBC 9.2 K/uL (4.0-11.0)
[2017-06-28 15:10] LABS: INR - (THERAPEUTIC) 0.97 (0.92-1.07); PROTIME 10.2 SECONDS (9.8-11.4); PTT 32 SECONDS (25-32)
[2017-06-28 15:21] LABS: ANION GAP 12.1 (10.0-19.0); CALCIUM 8.3 mg/dL (8.5-10.5); CREATININE 2.1 mg/dL (0.6-1.3); POTASSIUM 3.1 mMol/L (3.7-5.1); TOTAL BILIRUBIN 0.3 mg/dL (0.0-1.5); TOTAL PROTEIN 7.5 g/dL (6.0-8.4)
--- NOTE | 2017-06-28 19:29 | NUR ---
Pt is 82 y/o male admit for gangrenous areas on right foot for . Hospitalist also attending. 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 Pt lives at [facility]. Daughter at bedside. Came through ED. Plan is for surgery tmw. NPO after midnight. DNR order on chart. All appropriate bracelets applied.
[2017-06-28] MEDS ORDERED: DULCOLAX10 MG R (19:53)
[2017-06-28] MEDS ORDERED: MILK OF MA400 MG/5 M PO (19:54)
[2017-06-28] MEDS ORDERED: HYDROCODON-ACE1 EAC4 PO (19:56)
--- NOTE | 2017-06-29 04:02 | NUR ---
Significant Event: PATIENT IS A VERY POOR HISTORIAN, VERY FORGETFULL. RESPS 24, DID PUT ON 2L 02 SATS NOW IN MID 90'S. ALL OTHER VSS, AFEBRILE. GAVE 40 PO POTASSIUM ALONG WITH 40 IV FOR K+ OF 3.1. GAVE VANCO/ZOSYN. RIGHT FOORT NECROTIC. HAS BEEN NPO SINCE MIDNIGHT FOR RIGHT AKA AT 0930, ALSO WILL HAVE CT HEAD THIS AM FOR ALTERED LOC. CONSULTS PUT IN FOR NEPHROLOGY SIKH ALREADY NOTIFIED. JASPER TO PERFORM SURGERY. ACCU AC/HS. HAS DENIED PAIN, NO PAIN MEDS GIVEN. Follow up:
[2017-06-29 04:27] LABS: HEMATOCRIT 31.8 % (33.0-50.0); HEMOGLOBIN 9.8 g/dL (11.0-16.0); MCH 29.1 pg (27.0-34.0); MCHC 30.8 gm/dL (32.0-36.5); MCV 94.4 fl (83.0-98.0); MPV 8.7 fl (9.4-12.4); RBC 3.37 M/uL (3.50-5.50); RDW-CV 16.2 % (11.9-14.6); WBC 10.2 K/uL (4.0-11.0)
[2017-06-29 04:39] LABS: ANION GAP 11.2 (10.0-19.0); CALCIUM 8.2 mg/dL (8.5-10.5); POTASSIUM 4.2 mMol/L (3.7-5.1)
--- NOTE | 2017-06-29 07:20 | NUR ---
PATIENT WENT TO CT SCAN AND THEN SURGERY
--- NOTE | 2017-06-29 09:52 | NUR ---
Received orders to begin physical therapy with patient. Pt currently off floor this morning for surgical intervention on R LE. Will attempt to evaluate this afternoon for physical therapy as able. Victoria Nelson, PT 06/29/17
--- NOTE | 2017-06-29 12:31 | NUR ---
Occupational Therapy Note: OT attempted to see pt in the a.m. however pt was out for sx. OT will await resume orders after pt returns from AKA. Thank you, Josiah Matthews, OTR/L
--- NOTE | 2017-06-29 13:00 | NUR ---
Pt is down in surgery then maybe to dialysis. He is from [facility] and will plan to send back when ready.
[2017-06-29 15:19] LABS: ANION GAP 15.7 (10.0-19.0); CALCIUM 8.1 mg/dL (8.5-10.5); CREATININE 3.4 mg/dL (0.6-1.3); POTASSIUM 4.7 mMol/L (3.7-5.1)
--- NOTE | 2017-06-29 15:40 | NUR ---
I did call and updated Graciela at [facility] on pt's surgery.
--- NOTE | 2017-06-29 18:45 | NUR ---
Significant Event:PATIENT HAD SURGERY TODAY RIGHT AKA. RETURN TO FLOOR AT 1315. DRSG IS CDI. MORPHINE 2M IV AT 1330 AND NORCO 2 TABS AROUND 1400. SBP 140-190'S. NORVASC AND CARDIZEM GIVEN. FAMILY AT BEDSIDE. ACCUCHECK 216 2 UNITS GIVEN. [facility] AM [facility] DEXTROSE GIVEN. LS CLEAR ON 3L NC. ABD SOFT WITH ACTIVE BOWEL TONES.
--- NOTE | 2017-06-29 19:16 | NUR ---
VS POST ON CHART.
[2017-06-30 03:18] LABS: BASOPHIL # 0.1 K/uL (0.0-0.2); BASOPHIL % 0.7 %; EOSINOPHIL # 0.3 K/uL (0.0-0.5); EOSINOPHIL % 2.4 %; HEMATOCRIT 29.8 % (33.0-50.0); HEMOGLOBIN 9.1 g/dL (11.0-16.0); IMMATURE GRANULOCYTE % 0.2 %; LYMPHOCYTE # 1.5 K/uL (0.8-4.0); LYMPHOCYTE % 14.9 %; MCHC 30.5 gm/dL (32.0-36.5); MCV 94.9 fl (83.0-98.0); MONOCYTE # 0.8 K/uL (0.0-1.0); MONOCYTE % 7.5 %; MPV 8.7 fl (9.4-12.4); NEUTROPHIL # (ANC) 7.6 K/uL (1.4-9.0); NEUTROPHIL % 74.3 %; NRBC % 0 /100WBC (0-0.00); PLATELET COUNT 329 K/uL (150-450); RBC 3.14 M/uL (3.50-5.50); RDW-CV 16.4 % (11.9-14.6); WBC 10.3 K/uL (4.0-11.0)
[2017-06-30 03:35] LABS: ALBUMIN 2.7 gm/dL (3.5-5.0); ANION GAP 13.2 (10.0-19.0); CALCIUM 7.9 mg/dL (8.5-10.5); CREATININE 4.2 mg/dL (0.6-1.3); MAGNESIUM 2.3 mg/dL (1.8-2.6); POTASSIUM 5.2 mMol/L (3.7-5.1)
--- NOTE | 2017-06-30 04:44 | NUR ---
Significant Event: ALL VSS, TITRATING O2 BETWEEN 1 TO 3 LITERS, AFEBRILE. IV FLUIDS D/C'D AT 0300. HAS BEEN DROWSY AND LETHARGIC ALL SHIFT. DOES AWAKEN VERY EASILY AND ANSWERS ALL QUESTIONS APPROPIRATELY AND OBEYS COMMANDS, HAS DENIED ALL PAIN, NO PAIN MEDS GIVEN. WILL HAVE DIALYSIS THIS AM. Follow up:
--- NOTE | 2017-06-30 13:59 | NUR ---
OT: Pt out of room for dialysis. Will attempt to complete the OT evaluation as able. Dione OTR/L 06/30/17
--- NOTE | 2017-06-30 17:16 | NUR ---
Significant Event: Alert and oriented X 1, disoriented to place and time. Room air, does drop into the high 80's but rebounds quickly. HR 80's and 90's. SBP 140's and 160's. Bedrest. Dialysis done today. Poor appetite, refused breakfast and bites for lunch. Dressing on right leg clean dry and intact. Slight temperature of 99.6 this afternoon, removed blankets and placed a sheet. No bowel movements this shift. IV to left antecubital, infusing antibiotics. Pleasant and cooperative with cares. Follow up:
--- NOTE | 2017-07-01 04:26 | NUR ---
Patient oriented to self most of the night became more alert and talkative thougthout shift. VSS on 0-2L at times. Lungs course, harsh non productive cough. Bowel sounds present 2 mod BMS this shift. Rt stump acewrap, Lt stump open to air. IV to LT AC saline locked. May need a swallow study, patient has a hard time swallowing pills and also drinking water. [place] x2 for stump pain, last at 0430. Incont of urine and stool.
[2017-07-01 05:42] LABS: BASOPHIL # 0.1 K/uL (0.0-0.2); BASOPHIL % 0.5 %; EOSINOPHIL # 0.2 K/uL (0.0-0.5); HEMATOCRIT 29.6 % (33.0-50.0); IMMATURE GRANULOCYTE % 0.4 %; LYMPHOCYTE # 1.8 K/uL (0.8-4.0); LYMPHOCYTE % 17.1 %; MCH 29.2 pg (27.0-34.0); MCHC 30.4 gm/dL (32.0-36.5); MCV 96.1 fl (83.0-98.0); MONOCYTE # 0.9 K/uL (0.0-1.0); MONOCYTE % 8.3 %; MPV 8.8 fl (9.4-12.4); NEUTROPHIL # (ANC) 7.5 K/uL (1.4-9.0); NEUTROPHIL % 71.7 %; NRBC % 0 /100WBC (0-0.00); PLATELET COUNT 320 K/uL (150-450); RBC 3.08 M/uL (3.50-5.50); RDW-CV 16.6 % (11.9-14.6); WBC 10.5 K/uL (4.0-11.0)
--- NOTE | 2017-07-01 16:44 | NUR ---
Significant Event: Alert and oriented X 2. Disoriented to time. Does get a little forgetful but a little cueing he can remember. O2 at 1 L, d/t desating while sleeping. SBP 140's, 150's and 170's. HR 70's and 80's. Incontinent of bowel and bladder. Dialysis patient, Tuesdays, and Saturdays. Peripheral IV to left antecubital, flushes well no blood return saline locked. Dressing to right stump clean dry and intact. Full Lift 2 assist. Patient refused going to chair this shift. Takes medication whole, 1-2 at a time with sips of water. Diabetic diet, thin liquids. Pleasant and cooperative with cares. Follow up: Son's are leaving to go back home tomorrow. If medical device engineer needs to contact daughter, Darlene Lemus .
[2017-07-02 04:31] LABS: BASOPHIL # 0.1 K/uL (0.0-0.2); BASOPHIL % 0.5 %; EOSINOPHIL # 0.3 K/uL (0.0-0.5); EOSINOPHIL % 3.4 %; HEMATOCRIT 29.1 % (33.0-50.0); HEMOGLOBIN 8.9 g/dL (11.0-16.0); IMMATURE GRANULOCYTE % 0.2 %; LYMPHOCYTE # 1.9 K/uL (0.8-4.0); LYMPHOCYTE % 19.3 %; MCH 28.7 pg (27.0-34.0); MCHC 30.6 gm/dL (32.0-36.5); MCV 93.9 fl (83.0-98.0); MONOCYTE # 0.9 K/uL (0.0-1.0); MPV 8.7 fl (9.4-12.4); NEUTROPHIL # (ANC) 6.6 K/uL (1.4-9.0); NEUTROPHIL % 67.6 %; NRBC % 0 /100WBC (0-0.00); PLATELET COUNT 331 K/uL (150-450); RDW-CV 16.3 % (11.9-14.6); WBC 9.7 K/uL (4.0-11.0)
--- NOTE | 2017-07-02 07:18 | NUR ---
Significant Event: Patient is alert and oriented to self and place. Disoriented to time. Drowsy at times, but easily awoken. VSS on room air. Full lift. Dressing to right lower extremity is intact. Fistula to right upper arm, good bruit and thrill noted. Dialysis on Sunday, Sunday, and Sunday. Incontinent of urine and stool. Denies any pain. Left AC IV, saline locked. ACHS accuchecks. Blood sugar this am was 54. Hughes juice given to patient, rechecked 15 minutes later, it was 52. Another orange juice and peanut butter and saltine crackers given. Rechecked 15 minutes later, blood sugar was 58. MD called, order to be given 1 amp of 50% IVP Dextrose and qHS Levemir decreased to 5 units. Rechecked 30 minutes later after dextrose given, blood sugar was 216. Patient is pleasant and cooperative with cares. Follow up:
[2017-07-02 08:25] LABS: ALBUMIN 2.6 gm/dL (3.5-5.0); ANION GAP 12.8 (10.0-19.0); CALCIUM 7.9 mg/dL (8.5-10.5); PHOSPHORUS 3.7 mg/dL (2.5-4.9); POTASSIUM 3.8 mMol/L (3.7-5.1)
[2017-07-02 08:26] LABS: CREATININE 4.1 mg/dL (0.6-1.3)
--- NOTE | 2017-07-02 14:05 | NUR ---
Introduced self and role of care management to pt. He states he wants to go home. I explained at this time that is not possible will need more therapy, or 24/7 care that is able to get him to and from dialysis. I did call daughter Darlene Lemus [phone] and I did speak with her. She is wanting a different facility if able and her brother said something about [facility]. I explained I would have to see if Ryan has chair times and go from there but that does not mean a senior living will accept either, but most likely he will need to return back to [facility] and she understands. She did say she is aware he wants to go home but that is not possible. I did tell her to talk with [facility] with there salome as well. SHe stated his pcp is Dr Robert in [place]. I did call Ryan x2 and left in .
--- NOTE | 2017-07-02 17:52 | NUR ---
Significant Event: ALERT, NOT ORIENTED TO TIME. SLOW TO RESPOND, FEW WORDS, FLAT AFFECT. 1L OFF IN DIALYSIS TODAY, AGAIN WEDS. R)ARM FISTULA BRUIT/THRILL. DRESSING CHANGES TO R)STUMP DAILY AND PRN. INCONTINENT VOID AND BM TODAY. VSS, AFEBRILE, ROOM AIR. FULL LIFT. DANGLED AT BEDSIDE WITH THERAPY. IV TO L)AC SL. DENIES PAIN. ACCUCHEK ACHS, NO SLIDING COVEREAGE AT HS DUE TO HYPOGLYCEMIA THIS AM. Follow up: PSYCH CONSULT TOMORROW. FAMILY REQUEST FOR DIFFERENT SNF, OK TO D/C FROM [facility].
--- NOTE | 2017-07-03 04:05 | NUR ---
Alter to place/time. Dialysis M/W/F last on 07/02/17, removed 1L. Anuric. CHAVEZ Fistula, thrill/bruit present. Accu ACHS, no sliding scale coverage HS. SBP 180s, gave 10mg hydralazine, SBP now 140s. L) AC SL. R) AKA, александр wrap/dressing change Qday/PRN, c/d/i now.
[2017-07-03 04:22] LABS: BASOPHIL % 0.4 %; EOSINOPHIL # 0.3 K/uL (0.0-0.5); HEMATOCRIT 29.5 % (33.0-50.0); HEMOGLOBIN 9.1 g/dL (11.0-16.0); IMMATURE GRANULOCYTE % 0.3 %; LYMPHOCYTE # 1.8 K/uL (0.8-4.0); LYMPHOCYTE % 19.8 %; MCH 29.2 pg (27.0-34.0); MCHC 30.8 gm/dL (32.0-36.5); MCV 94.6 fl (83.0-98.0); MONOCYTE # 0.7 K/uL (0.0-1.0); MONOCYTE % 7.5 %; MPV 8.6 fl (9.4-12.4); NEUTROPHIL # (ANC) 6.4 K/uL (1.4-9.0); NRBC % 0 /100WBC (0-0.00); PLATELET COUNT 309 K/uL (150-450); RBC 3.12 M/uL (3.50-5.50); RDW-CV 16.3 % (11.9-14.6); WBC 9.3 K/uL (4.0-11.0)
--- NOTE | 2017-07-03 11:32 | NUR ---
Significant Event: MORE ALERT & TALKATIVE TODAY. REORIENTED TO TIME. WORKED WITH PT/OT. VSS, AFEBRILE, ROOM AIR. INCREASED NORVASC TO 10MG AND LEVEMIR TO 8 UNITS. PT EATING WELL PLUS SNACKS, ACCUCHEKS ARE SKEWED TODAY. DAILY DRESSING CHANGES TO R)STUMP. [facility]. Follow up: DIALYSIS . AWAITING PSYCH CONSULT. TRANSFER TO [facility] IF APPROVED BY INSURANCE
--- NOTE | 2017-07-03 12:06 | NUR ---
A - SCREENED D/T LOS. A/O X 2. 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 HEMODIALYSIS MWF. NO NEW LABS TODAY. ACCUCHECKS 50S TO 311; LEVEMIR INCREASED TODAY, ON MILD SLIDING SCALE INSULIN. CBW: 52.3 KG. DIET: DIABETIC W/ INTAKE USUALLY 75-100%. EST NEEDS FOR DIALYSIS = 1800 KCALS, 63 GM PROTEIN, 1 ML/KCAL FLUIDS. D - AT RISK W/ INCREASED NUTRIENT NEEDS D/T RECENT AMPUTATION AND DIALYSIS. I - GOAL: CONTINUE CURRENT INTAKE. M/E - 1) PT DISLIKES GLUCERNA. WILL OFFER OTTO BID AND CONT TO MONITOR INTAKE. F/U IN 3-5 DAYS.
--- NOTE | 2017-07-03 12:30 | NUR ---
I started early this am and spoke with Neda at [facility] in and they have chair times but on t-th-sat around 7 am, she does know pt from the [place] dialysis unit. I explained looking at maybe switching but will need to see ifa skilled facility in could accept. I called [facility] and no smoking, Aleksandra and no smoking on property and they can not accomidate the Sunday transport. I called Juliana with [facility] and I faxed the referral. I also spoke with [facility] and no smoking just across street and they stated just to fax the referral. I then called daughter Darlene and updated her that I may have 3 facilities in that are willing to look, that does not mean accept because I would want this before I would switch over his dialysis and yes he would then loose his spot in [place] or we can just stay at [facility] in [place]. She did tell me about the concerns and I as well stated I called them and he is allowed 3 smoke breaks and was doing more than that with son and missing lots of therapy sessions but told her I was aware there are always 2 sides to a story. She stated she will need to talk with her brother when he is done teaching school at 4pm. I explained I will just fax information and go from there. I did speak with Denise at [facility] and updated her on pt. I then rounded and saw DR Bush consulted him and maybe a good candidate. I then spoke with [facility] and she will assess the situation. Will continue to follow.
--- NOTE | 2017-07-04 03:46 | NUR ---
Significant Event:DISORIENTED TO TIME. FORGETFUL. FLAT EFFECT. RESTED IN BED ALL OF SHIFT. TURNS SELF. AFEBRILE. VSS ON RA. NORCO GIVEN X1. PATIENT WAS ABLE TO FIND RELIEF AND NO C/O OF PAIN THE REST OF THE SHIFT. IV TO L) AC SL. FISTULA TO R) UPPER ARM. BRUIT AND THRILL PRESENT. DIALYSIS TODAY. 0 OUTPUT. NO BM THIS SHIFT. DRESSINGS AND STUMP STRINKER TO CRYSTAL LEGS INTACT. Follow up: CONTINUE WITH PLAN OF CARE. GIRP PLACEMENT THIS WEEK?
[2017-07-04 04:12] LABS: BASOPHIL % 0.4 %; EOSINOPHIL # 0.4 K/uL (0.0-0.5); EOSINOPHIL % 3.9 %; HEMATOCRIT 29.2 % (33.0-50.0); HEMOGLOBIN 9.1 g/dL (11.0-16.0); IMMATURE GRANULOCYTE % 0.4 %; LYMPHOCYTE % 20.1 %; MCH 29.1 pg (27.0-34.0); MCHC 31.2 gm/dL (32.0-36.5); MCV 93.3 fl (83.0-98.0); MONOCYTE # 0.5 K/uL (0.0-1.0); MONOCYTE % 5.2 %; MPV 8.8 fl (9.4-12.4); NEUTROPHIL # (ANC) 7.1 K/uL (1.4-9.0); NRBC % 0 /100WBC (0-0.00); PLATELET COUNT 308 K/uL (150-450); RBC 3.13 M/uL (3.50-5.50); RDW-CV 16.6 % (11.9-14.6); WBC 10.1 K/uL (4.0-11.0)
--- NOTE | 2017-07-04 09:16 | NUR ---
I got a call from Millie with [facility] and the team met and he is not a candidate at this time due to having sores on bottom and that not working well with the slide board. I will wait to hear from [facility]. Juliana stated yesterday will be up today.
--- NOTE | 2017-07-04 14:16 | NUR ---
I spoke with Juliana with [facility] and she states it is looking like [facility] will accept pt or maybe even [facility] but more [facility], both are smoking facilities. I then called daughter Darlene and updated her that I have a potential facility in [place] that can accept her dad but before I do this I want to make sure this is what he and they are wanting before I look at getting his dialysis switched because at this time they have 7am t-th-sat? Darlene stated a doctor said something about rehab for 2 weeks and she was worried after that what to do and maybe in the same situation. I explained I spoke with [facility]ie this am and just found out that at this time he is not an acute rehab candidate here so it would be SNF. She states she will need to talk with her brothers. I then went and spoke with pt and updated him that is family is looking at moving him to a different facility. He states he just wants to go home and I explained that is not an option at this time but going to or back to [facility]. He states what is wrong with [facility] and I told him his family is have some concerns. HE states he just wants to go where he can smoke and didn't mind [facility]. I then called Darlene back with the information I got from her father and explained he is ready for next level of care whether it is to return or pursure other. She states the plan is they are all going to talk with there father pantera so will let me or nurses know tonite or tomorrow. I will call [facility] with the update.
--- NOTE | 2017-07-04 14:29 | NUR ---
I called and updated Denise and explained probably ready or Sunday. I explained family is going to talk with pt tonite and I told her pt does not have a problem with [facility]. Denise did tell me when he comes back he will be on a -- schedule in [place] at 7 am so that will be much easier for transportation as well.
--- NOTE | 2017-07-04 15:34 | NUR ---
ST attempted to see pt. @ 4426 and 1180, however pt. out of room for dialysis. cont. POC.
--- NOTE | 2017-07-04 17:25 | NUR ---
Significant Event: A/OX3, FORGETFUL. VSS ON ROOM AIR. R)ARM FISTULA HAS BRUIL/THRILL. 600mL REMOVED DURING DIALYSIS TODAY, WILL HAVE AGAIN ON SUNDAY. PT. DUDLEYGLED @ BEDSIDE TODAY WITH PT/OT. BATH GIVEN. INC. OF BM X2. SLIV TO L)AC. NORCO GIVEN @ 1120 FOR BACK PAIN, WITH RELIEF NOTED. POSSIBLE D/C BACK TO [place] LATER THIS WEEK, FAMILY WOULD LIKE PT. TO TRANSFER TO [facility] & SET UP DIALYSIS THERE, FAMILY TO DISCUSS WITH PT. AND TELL CM TOMORROW SO PLACEMENT CAN BE STARTED. COCCYX SLIGHTLY REDDENED, BLANCHABLE, ALOE APPLIED. ATE BETTER TODAY. TIMOTEO ESPINOZA STILL NEEDS TO SEE PT. Follow up: CONTINUE WITH POC.
[2017-07-05 03:40] LABS: BASOPHIL # 0.1 K/uL (0.0-0.2); BASOPHIL % 0.5 %; EOSINOPHIL # 0.5 K/uL (0.0-0.5); EOSINOPHIL % 4.2 %; HEMATOCRIT 29.2 % (33.0-50.0); IMMATURE GRANULOCYTE # 0.1 K/uL (0.0-0.3); IMMATURE GRANULOCYTE % 0.4 %; LYMPHOCYTE # 2.5 K/uL (0.8-4.0); LYMPHOCYTE % 22.8 %; MCH 28.9 pg (27.0-34.0); MCHC 30.8 gm/dL (32.0-36.5); MCV 93.9 fl (83.0-98.0); MONOCYTE # 0.7 K/uL (0.0-1.0); MONOCYTE % 6.2 %; NEUTROPHIL # (ANC) 7.3 K/uL (1.4-9.0); NEUTROPHIL % 65.9 %; NRBC % 0 /100WBC (0-0.00); PLATELET COUNT 333 K/uL (150-450); RBC 3.11 M/uL (3.50-5.50); RDW-CV 16.9 % (11.9-14.6); WBC 11.1 K/uL (4.0-11.0)
--- NOTE | 2017-07-05 04:13 | NUR ---
Significant Event: VSS ON RA. TURNS SELF. CRACKLES IN BILATERAL BASES. NO PAIN, NO COMPLICATIONS THIS EVENING. BLOOD CULTURES NEGATIVE AFTER 5 DAYS. Follow up:
--- NOTE | 2017-07-05 10:00 | NUR ---
I did call daughter Darlene and asked about her visit with her father last nite and what they have decided. She stated that her brother stated [facility] will accept if that is what they want to do. I did tell her he has a -w- time with [facility] in [place] and she stated she wanted me to look at [facility] again. I stated I can try but her father is ready for discharge. She stated that knowone has ever told her this. I explained I have been talking with her on the phone everyday and I know the physcians have as well and she was thinking he was going to [facility] until yesterday. I stressed the importance of if we are planning on moving I need to get his information over the main [facility] and get a time for him, I know it will be a T-Th-Sat time. I again stressed what her father told me that he wants to go where he is able to smoke and she is aware and states and will let her brothers handle this. I did call [facility] and they do not allow smoking but will take a look at it again per Magy. I did call [facility] in [place] [phone] and the new time is now at 5:20 am for arrive and 5:40 for start time because of the transport with [place] and another pt. She told me she will talk with her brother but see if [facility] could work out. I did call over to [facility] and it will be t-th-sat spot ? time unsure because the spots are filling up as we speak. I did update Dr Hammer. I will wait to hear something from Doctor Evidence then update the daughter.
--- NOTE | 2017-07-05 11:56 | NUR ---
I did get a call from Sheree with [facility] and she stated [facility] can accept. I stated I am waiting on family and will have to get his chair time changed over.
--- NOTE | 2017-07-05 12:12 | NUR ---
I did call daughter Darlene and explained I am bere needing to know a plan because [facility] can accept and [facility] reviewing but do not know if can meet his needs due to dialysis time is at 5:20 and they are 50 minutes away and pt can not smoke there. She stated she just got off the phone with her brothers and they are just going to return back to [place] they want to do what the pt wants. I explained I can wait a little bit and she stated no they decided to go back to [place] and they all are POA's. I told her he is ready to go today or tomorrow and will find out from the facility and she stated just to let her know. I did verbally review the IMM on the phone. I then called Denise and she states to send him back tomorrow after dialysis so looking at around 1330. I did update [facility] and ours and also Dr Hammer, nursing and Elif LIMA.
--- NOTE | 2017-07-05 12:58 | NUR ---
I did call Magy back at [facility] with update and she stated they are still reviewing to see if they can tranport early in the am or not but yes they are not a smoking facility. I told her at this time they are having pt return back to [facility] because that is what he is wanting. I told her if something changes I would let her know.
--- NOTE | 2017-07-05 16:02 | NUR ---
I did call Darlene on the time for dismissal tomorrow and I also notify Yuli LIMA for Dr Sauer as well.
--- NOTE | 2017-07-05 18:09 | NUR ---
ASSUMED PATIENT CARES AT 15:00. REPOSITIONED PATIENT Q 2 HRS. SUPERVISOR STENO POOL REP FITTED PATIENT. 1 NORCO GIVEN END OF SHIFT, WITH PARTIAL RELIEF. FAMILY AT BEDSIDE.
[2017-07-06 04:10] LABS: BASOPHIL % 0.4 %; EOSINOPHIL # 0.5 K/uL (0.0-0.5); EOSINOPHIL % 5.1 %; HEMATOCRIT 29.8 % (33.0-50.0); HEMOGLOBIN 9.2 g/dL (11.0-16.0); IMMATURE GRANULOCYTE % 0.3 %; LYMPHOCYTE # 2.1 K/uL (0.8-4.0); LYMPHOCYTE % 20.9 %; MCH 28.9 pg (27.0-34.0); MCHC 30.9 gm/dL (32.0-36.5); MCV 93.7 fl (83.0-98.0); MONOCYTE # 0.6 K/uL (0.0-1.0); MONOCYTE % 5.8 %; MPV 8.9 fl (9.4-12.4); NEUTROPHIL # (ANC) 6.8 K/uL (1.4-9.0); NEUTROPHIL % 67.5 %; NRBC % 0 /100WBC (0-0.00); PLATELET COUNT 323 K/uL (150-450); RBC 3.18 M/uL (3.50-5.50); RDW-CV 17.2 % (11.9-14.6)
[2017-07-06 04:25] LABS: ALBUMIN 2.6 gm/dL (3.5-5.0); ANION GAP 14.2 (10.0-19.0); CALCIUM 7.7 mg/dL (8.5-10.5); CREATININE 3.7 mg/dL (0.6-1.3); PHOSPHORUS 2.7 mg/dL (2.5-4.9); POTASSIUM 4.2 mMol/L (3.7-5.1)
--- NOTE | 2017-07-06 04:29 | NUR ---
VSS on R/A. Disoriented to time and place. No IV present. Amputation sites covered with ortho device. Rests quietly through most of NOC. Denies pain. D/C to [facility] in AM.
--- NOTE | 2017-07-06 14:14 | NUR ---
Talked to Denise at [facility] in [place] late morning and they will plan to be here about 1400. Did call dialysis while on phone with Denise and patient will be back to his room around 1315. Received call from Denise and they have put on hold coming to get him as sonDarrel called them and they may be looking at him going somewhere else. She says Darrel said he can't call (son) Connor until 1315 and then will get back to her. She says patient needs to be at their facility by 1600 for them to take him today. Did not have number for Darrel so called sister Darlene and asked her if she knew what was going on. She says she is "washing her hands of the situation and I will need to talk with Darrel". She thinks they are looking at [facility] now. She will call me back with Darrel's number. Called and spoke with Saige at [facility]. She says sonDarrel has talked with them and they have received information from our medical records department, but has not reviewed it yet. She says the earliest they would be able to accept would be Sunday, as need to review information and do a face to face assessment, so may not even have a decision on Sunday. Talked with Celestina KILPATRICK and she says discharge orders have been writen and patient is ready to go today and does have a safe discharge plan. Called and talked to patient's son, Darrel. He says they are looking at [facility] and will probably move him there if they accept him. He says he is fine with patient transferring to [place] today and being there until they can work out other arrangements. Told him I will call [place] to come and get him and he says that is fine. Called and spoke with Denise at [facility] and they will send the van to pick him up and be here about 1440. Orders faxed. Nurse will call nurse to nurse report. Patient will transfer to [facility] in [place] via [place] van today for skilled care.
--- NOTE | 2017-07-06 14:26 | NUR ---
Pt A&Ox3, FAC, and NUNEZ with some difficulty in the BLE. VSS on R/A. No IV present. Amputation sites look good. [place] intact, covered with orthotic stump devices. Denies pain. SBP 152-184; HR 80s; afebrile. Dialysis today with 1/2L off. Some hypotension during dialysis, given albumin to correct.
== END 2017-07-06 16:34 | DRG 616 ==
LOC: GMED 13:33 → GICU 17:51 → GPCU 17:51
PROVIDERS: Emergency Medicine; Internal Medicine; Internal Medicine Nephrology; Physician Assistant; ADMIT Surgery Vascular Surgery
PROC: 0Y6C0Z1 Detachment at Right Upper Leg, High, Open Approach (ICD-10-PCS; principal; 2017-06-29)
DX: E11.621 Type 2 diabetes mellitus with foot ulcer (principal); E43 Unspecified severe protein-calorie malnutrition; G93.40 Encephalopathy, unspecified; I96 Gangrene, not elsewhere classified; L03.119 Cellulitis of unspecified part of limb; I12.0 Hypertensive chronic kidney disease with stage 5 chronic kidney disease or end stage renal disease; Z51.5 Encounter for palliative care; Z79.4 Long term (current) use of insulin; D63.8 Anemia in other chronic diseases classified elsewhere; F03.90 Unspecified dementia, unspecified severity, without behavioral disturbance, psychotic disturbance, mood disturbance, and anxiety; F32.9 Major depressive disorder, single episode, unspecified; I99.8 Other disorder of circulatory system; E11.22 Type 2 diabetes mellitus with diabetic chronic kidney disease; N18.6 End stage renal disease; J44.9 Chronic obstructive pulmonary disease, unspecified; I25.10 Atherosclerotic heart disease of native coronary artery without angina pectoris; Z95.5 Presence of coronary angioplasty implant and graft; F17.200 Nicotine dependence, unspecified, uncomplicated; Z99.2 Dependence on renal dialysis
CPT/HCPCS: J0360; J0690; J1644; J2270; J2543; J3010; J3370; J3480; J7030; J7040; J7050; P9047; Q4081